=== PATIENT | female | born 1945 | race Caucasian/White ===

== ENCOUNTER 2016-07-18 | Outpatient (CLI) | payer MEDICARE | END 2016-07-18 08:51 | disposition critical access hospital (66) | CPT/HCPCS: A0425; A0429 ==

== ENCOUNTER 2016-07-18 08:59 | Emergency (ER) | payer MEDICARE | END 2016-07-18 11:08 | disposition home or self-care (01) | DX: S72.114A Nondisplaced fracture of greater trochanter of right femur, initial encounter for closed fracture (principal); W01.0XXA Fall on same level from slipping, tripping and stumbling without subsequent striking against object, initial encounter; Y92.009 Unspecified place in unspecified non-institutional (private) residence as the place of occurrence of the external cause; Z96.642 Presence of left artificial hip joint; I10 Essential (primary) hypertension; E03.9 Hypothyroidism, unspecified; J44.9 Chronic obstructive pulmonary disease, unspecified; Z87.891 Personal history of nicotine dependence ==

== ENCOUNTER 2016-09-28 09:00 | Outpatient (CLI) | payer MEDICARE | END 2016-09-28 23:59 | DX: E03.9 Hypothyroidism, unspecified (principal); E63.9 Nutritional deficiency, unspecified; I10 Essential (primary) hypertension ==

== ENCOUNTER 2016-09-28 12:29 | Emergency (ER) | payer MEDICARE | END 2016-09-28 15:15 | disposition home or self-care (01) | DX: S40.021A Contusion of right upper arm, initial encounter (principal); S40.811A Abrasion of right upper arm, initial encounter; W01.0XXA Fall on same level from slipping, tripping and stumbling without subsequent striking against object, initial encounter; Y92.018 Other place in single-family (private) house as the place of occurrence of the external cause; M50.322 Other cervical disc degeneration at C5-C6 level; M50.323 Other cervical disc degeneration at C6-C7 level; Z98.1 Arthrodesis status; I10 Essential (primary) hypertension; R01.1 Cardiac murmur, unspecified; J44.9 Chronic obstructive pulmonary disease, unspecified; G47.30 Sleep apnea, unspecified; E03.9 Hypothyroidism, unspecified; K21.9 Gastro-esophageal reflux disease without esophagitis; M19.90 Unspecified osteoarthritis, unspecified site; Z87.891 Personal history of nicotine dependence ==

== ENCOUNTER 2016-09-30 12:06 | Outpatient (CLI) | payer MEDICARE | END 2016-09-30 12:07 | disposition critical access hospital (66) | DX: R69 Illness, unspecified (principal) | CPT/HCPCS: A0425; A0429 ==

== ENCOUNTER 2016-09-30 12:17 | Emergency (ER) | payer MEDICARE | END 2016-09-30 17:10 | disposition home or self-care (01) | DX: G47.00 Insomnia, unspecified (principal); I10 Essential (primary) hypertension; J44.9 Chronic obstructive pulmonary disease, unspecified; G47.30 Sleep apnea, unspecified; E03.9 Hypothyroidism, unspecified; K21.9 Gastro-esophageal reflux disease without esophagitis; M19.90 Unspecified osteoarthritis, unspecified site; Z87.891 Personal history of nicotine dependence ==

== ENCOUNTER 2017-01-16 14:12 | Outpatient (CLI) | payer MEDICARE | END 2017-01-16 14:13 | disposition home or self-care (01) | LOC: SC 14:12 | PROVIDERS: ATTEND Internal Medicine Pulmonary Disease | DX: G47.33 Obstructive sleep apnea (adult) (pediatric) (principal); G47.00 Insomnia, unspecified | CPT/HCPCS: 99203; G0463; 99212 ==

== ENCOUNTER 2017-02-26 13:46 | Emergency (ER) | payer MEDICARE ==
[2017-02-26] MEDS ORDERED: oxyCODONE 5 MG TABLET PO STA (14:13)
--- NOTE | 2017-02-26 14:15 | ED Physician Documentation ---
History of Present Illness - Stated complaint Stated Complaint: GLF/R BACK PX - Chief complaint Chief Complaint: Back Pain - History obtained from History obtained from: Patient, Family - History of Present Illness Timing: Other (71-year-old woman with chronic low back pain on fentanyl, history of prior fall causing a cervical spine injury with fracture. About a week ago she fell backward and onto the right side and has persistent increase in her chronic neck pain as well as pain of the Right posterior pelvic brim without midline spinal pain. No other injuries. No head injury.) Review of Systems Ten Systems: 10 systems reviewed and negative Constitutional: denies: Fever, Chills Cardiac: denies: Chest pain / pressure, Palpitations Respiratory: denies: Dyspnea, Cough PD PAST MEDICAL HISTORY - Past Medical History Cardiovascular: Hypertension, Murmur Respiratory: COPD, Sleep apnea Neuro: None Endocrine/Autoimmune: HyPOthyroidism GI: GERD : Incontinence HEENT: None Psych: Depression, Anxiety, Eating disorder Musculoskeletal: Osteoarthritis, Chronic back pain Derm: Other drug resistant infections - Past Surgical History Past Surgical History: Yes General: Cholecystectomy Ortho: Hip replacement, Spine surgery Derm: Skin grafts, Other - Present Medications Home Medications: Ambulatory Orders Medication Instructions Recorded Confirmed Hydrochlorothiazide 12.5 mg PO DAILY 03/28/13 11/25/16 Losartan Potassium [Cozaar] 50 mg PO DAILY 03/28/13 11/25/16 Progesterone,Micronized 100 mg PO HS 03/28/13 11/25/16 [Progesterone] Venlafaxine ER [Effexor ER] 225 mg PO DAILY 03/28/13 11/25/16 Levothyroxine Sodium [Levoxyl] 200 mcg PO DAILY 02/26/16 11/25/16 Bupropion HCl 75 mg PO DAILY 05/31/16 11/25/16 Estrogen,Adriane/Me-Testosterone 1 tab PO DAILY 05/31/16 11/25/16 [Eemt Hs 0.625-1.25 mg Tablet] Fentanyl [Fentanyl 100mcg patch] 150 mcg TD Q72H 05/31/16 11/25/16 Fluticasone/Salmeterol [Advair 2 puffs INH Q4H PRN 05/31/16 11/25/16 250-50 Diskus] Levothyroxine Sodium [Levoxyl] 25 mcg PO DAILY 05/31/16 11/25/16 Sucralfate 1 gm PO QID #120 tablet 06/03/16 11/25/16 Morphine ER 15 mg PO Q4H PRN 07/18/16 11/25/16 Albuterol Sulfate [Proair Hfa 2 puffs INH Q4H PRN 08/17/16 11/25/16 Inhaler] Calcium Citrate [Calcium Citrate] 1 tab PO DAILY 08/17/16 11/25/16 Cholecalciferol (Vitamin D3) 1 cap PO DAILY 08/17/16 11/25/16 [Vitamin D3] Diclofenac Sodium [Voltaren] 1 applic TP DAILY PRN 08/17/16 11/25/16 Gluc Palafox/Chondro Palafox A/Vit C/Mn 1 cap PO DAILY 08/17/16 11/25/16 [Glucosamine-Chondroitin Cap] Melatonin [Melatonin] 10 mg PO QPM PRN 08/17/16 11/25/16 Multivitamin W/Minerals Liq 1 tab PO DAILY 08/17/16 11/25/16 [Centrum] Naproxen Sodium [Aleve] 2 tab PO Q8H PRN 08/17/16 11/25/16 Pantoprazole [Protonix] 40 mg PO Q12H 08/17/16 11/25/16 oxyCODONE [Roxicodone] 5 mg PO Q4-6H PRN #20 tablet 02/26/17 - Allergies Allergies/Adverse Reactions: Allergies Allergy/AdvReac Type Severity Reaction Status Date / Time Tetracyclines Allergy Severe Anaphylaxis Verified 09/30/16 12:25 buprenorphine HCl * AdvReac Severe hysterical Verified 09/30/16 12:25 [From Buprenex] fluoxetine HCl * AdvReac Severe suicidal Verified 09/30/16 12:25 [From Prozac] NSAIDS (Non-Steroidal AdvReac Severe GI BLEED Verified 09/30/16 12:25 Anti-Inflamma diazepam [From Valium] AdvReac Intermediate violent Verified 09/30/16 12:25 behavoir amitriptyline HCl * AdvReac Unknown pt is Verified 09/30/16 12:25 [From Elavil] unsure, maybe depressed tape AdvReac Intermediate localized Uncoded 09/30/16 12:25 blisters - Social History Does the pt smoke?: No Smoking Status: Former smoker Does the pt drink ETOH?: No Does the pt have substance abuse?: Yes - Immunizations Immunizations are current?: Yes - POLST Patient has POLST: Yes PD ED PE NORMAL - Vitals Vital signs reviewed: Yes - General General: Alert and oriented X 3, No acute distress - Neck Neck: Supple, no meningeal sign, Other (She has mild midline neck tenderness, prominent kyphosis of the neck and thoracic spine, no thoracic or lumbar spinal tenderness.) - Abdomen Abdomen: Soft, Non tender - Extremities Extremities: No deformity, No tenderness to palpate, Other (Mild tenderness the Right posterior pelvic brim without hip tenderness or pain with internal/ external rotation.) - Neuro Neuro: Alert and oriented X 3, Normal speech - Psych Psych: Normal mood, Normal affect Results - Vitals Vitals: Vital Signs - 24 hr 02/26/17 13:53 Temperature 36.3 C L Heart Rate 102 H Respiratory 16 Rate Blood Pressure 133/75 H O2 Saturation 98 Oxygen O2 Source [With Activity] Nasal cannula O2 Source [Without Activity] Nasal cannula O2 Source Room air - Rads (name of study) R hip/pelvis Xr Radiology: EMP read contemporaneously (stable) CT C spine Radiology: EMP read contemporaneously (stable NAD) Departure - Departure Disposition: 01 Home, Self Care Clinical Impression: Fall from slip, trip, or stumble Qualifiers: Encounter type: initial encounter Qualified Code(s): W01.0XXA - Fall on same level from slipping, tripping and stumbling without subsequent striking against object, initial encounter Greater trochanter fracture Qualifiers: Encounter type: subsequent encounter Fracture type: closed Fracture alignment: displaced Laterality: right Fracture healing: with nonunion Qualified Code(s): S72.111K - Displaced fracture of greater trochanter of right femur, subsequent encounter for closed fracture with nonunion C1 cervical fracture Qualifiers: Encounter type: subsequent encounter Fracture type: closed Fracture morphology : other fracture Fracture alignment: nondisplaced Fracture healing: with routine healing Qualified Code(s): S12.091D - Other nondisplaced fracture of first cervical vertebra, subsequent encounter for fracture with routine healing Condition: Good Record reviewed to determine appropriate education?: Yes Instructions: ED Low Back Pain Injury Prescriptions: oxyCODONE [Roxicodone] 5 mg PO Q4-6H PRN #20 tablet PRN Reason: Pain Comments: Call your doctor to arrange a follow-up appointment, make the next available appointment. In the interim, return anytime if worse or if new symptoms develop. Your blood pressure was elevated today on check into the emergency department. This does not mean that you have hypertension, it is a common phenomenon to come to the emergency department and have elevated blood pressure. I recommend that she see her primary care physician within the week to have it rechecked when you are feeling better.
[2017-02-26] MEDS ORDERED: oxyCODONE 5 MG TABLET ONE (14:21)
--- NOTE | 2017-02-26 15:10 | XRAY Preliminary Report ---
Exam: XR Hip w/Pelvis 2-3V RT IMPRESSION: No significant interval change. Previous left hip hardware and right greater trochanter f racture, stable. [facility] SITE ID: [id number]
--- NOTE | 2017-02-26 15:13 | XRAY Report ---
EXAM: RIGHT HIP AND PELVIS RADIOGRAPHY EXAM DATE: 02/26/2017 02:56 PM. HISTORY: Pelvic pain p fall. COMPARISONS: None. TECHNIQUE: 1 view of the pelvis and 1 view of the hip. FINDINGS: Bones: Stable appearance of previously noted right greater trochanter fracture. No new fracture. Visu alized left hip hardware is stable. Joints: The bilateral hip, pubis symphysis, and sacroiliac joints are preserved. Soft Tissues: Normal. No soft tissue swelling. IMPRESSION: No significant interval change. Previous left hip hardware and right greater trochanter f racture, stable. [facility] Referring Provider Line: [phone] SITE ID: [id number]
--- NOTE | 2017-02-26 15:17 | CT Preliminary Report ---
Exam: CT Cervical Spine W/O IMPRESSION: Stable postoperative changes and appearance of the odontoid fracture. Stable degenerative changes. No new fracture. [facility] SITE ID: [id number]
--- NOTE | 2017-02-26 15:19 | CT Report ---
EXAM: CT CERVICAL SPINE WITHOUT CONTRAST DATE: 02/26/2017 02:54 PM HISTORY: Increased neck pain, fall, prior frx. COMPARISONS: 09/28/2016. TECHNIQUE: Thin-section axial images were acquired of the cervical spine without contrast. Post-proce ssing: Coronal and sagittal reformats. Other: None. In accordance with CT protocol optimization, one or more of the following dose reduction techniques w ere utilized for this exam: automated exposure control, adjustment of mA and/or KV based on patient s ize, or use of iterative reconstructive technique. FINDINGS: Alignment: Stable accentuation of the cervical lordosis. Bones: Posterior spinal hardware fusion at C1-C2 is stable, with stable alignment of the odontoid fra cture. Some osseous bridging is again seen. No new fracture is appreciated. Interspace Levels/Facets: C1-C2: Stable fusion. No change in appearance of odontoid fracture. C2-C3: Unremarkable. C3-C4: Unremarkable. C4-C5: Unremarkable. C5-C6: Stable degenerative disk and facet disease. C6-C7: Stable degenerative disk and facet disease. C7-T1: Unremarkable. Musculature: Normal. No fatty atrophy. Other: The paravertebral and prevertebral soft tissues are normal. The lung apices are clear. IMPRESSION: Stable postoperative changes and appearance of the odontoid fracture. Stable degenerative changes. No new fracture. [facility] Referring Provider Line: [phone] SITE ID: [id number]
[2017-02-26 15:36] VITALS: BP 147/75
== END 2017-02-26 15:40 | disposition home or self-care (01) ==
LOC: ED 13:46
DX: S72.111K Displaced fracture of greater trochanter of right femur, subsequent encounter for closed fracture with nonunion (principal); S12.091D Other nondisplaced fracture of first cervical vertebra, subsequent encounter for fracture with routine healing; W01.0XXD Fall on same level from slipping, tripping and stumbling without subsequent striking against object, subsequent encounter; I10 Essential (primary) hypertension; E03.9 Hypothyroidism, unspecified; Z96.649 Presence of unspecified artificial hip joint; Z87.891 Personal history of nicotine dependence
CPT/HCPCS: 72125; 73502; 99283; 99284; A9270

== ENCOUNTER 2017-04-09 19:48 | Emergency (ER) | payer MEDICARE ==
--- NOTE | 2017-04-09 20:10 | ED Physician Documentation ---
PD HPI ABD PAIN - Stated complaint Stated Complaint: ABD PX/VOMITING/NAUSEA - Chief complaint Chief Complaint: Abd Pain - History obtained from History obtained from: Patient, Family, Other (majority of HPI is from patient' s daugher (at bedside), as patient is drowsy at times, other times is vomiting, and also preoccupied with getting some water to drink. Daugher is good historian , sounds like she is quite familiar with patient's baseline condition as well as acute vs. chronic symptoms) - History of Present Illness Timing - onset: Enter time (10:30) Timing - details: Gradual onset, Waxing and waning Pain level now: 5 Quality: Pain Location: Other (across upper abdomen) Improved by: Other (no ameliorating factors) Worsened by: Eating Associated symptoms: Nausea, Vomiting, Diarrhea (earlier today, resolved after taking immodium). No: Fever Recently seen: Emergency Dept (per daughter, patient was T+R from ED last week for abdominal pain after unremarkable w/u; however, daughter feels that the abdominal pain patient is having today is distinctly higher than it was last week) - Additional information Additional information: since 10:30 this morning, c/o abdominal pain across upper abdomen associated with nausea, vomiting, and unable to tolerate PO (due to exacerbation of pain, vomiting when she has tried to eat or drink anything). Recently stopped Depakote (2 days ago). Review of Systems Constitutional: denies: Fever Cardiac: reports: Reviewed and negative Respiratory: reports: Reviewed and negative GI: reports: Abdominal Pain, Nausea, Vomiting, Diarrhea (earlier today, resolved after taking immodium) : denies: Dysuria, Frequency Musculoskeletal: reports: Back pain (chronic) PD PAST MEDICAL HISTORY - Past Medical History Cardiovascular: Hypertension, Murmur Respiratory: COPD, Sleep apnea Neuro: None Endocrine/Autoimmune: HyPOthyroidism GI: GERD : Incontinence HEENT: None Psych: Depression, Anxiety, Eating disorder Musculoskeletal: Osteoarthritis, Chronic back pain Derm: Other drug resistant infections - Past Surgical History Past Surgical History: Yes General: Cholecystectomy Ortho: Hip replacement, Spine surgery Derm: Skin grafts, Other - Present Medications Home Medications: Ambulatory Orders Medication Instructions Recorded Confirmed Hydrochlorothiazide 12.5 mg PO DAILY 03/28/13 11/25/16 Losartan Potassium [Cozaar] 50 mg PO DAILY 03/28/13 11/25/16 Progesterone,Micronized 100 mg PO HS 03/28/13 11/25/16 [Progesterone] Venlafaxine ER [Effexor ER] 225 mg PO DAILY 03/28/13 11/25/16 Levothyroxine Sodium [Levoxyl] 200 mcg PO DAILY 02/26/16 11/25/16 Bupropion HCl 75 mg PO DAILY 05/31/16 11/25/16 Estrogen,Adriane/Me-Testosterone 1 tab PO DAILY 05/31/16 11/25/16 [Eemt Hs 0.625-1.25 mg Tablet] Fentanyl [Fentanyl 100mcg patch] 150 mcg TD Q72H 05/31/16 11/25/16 Fluticasone/Salmeterol [Advair 2 puffs INH Q4H PRN 05/31/16 11/25/16 250-50 Diskus] Levothyroxine Sodium [Levoxyl] 25 mcg PO DAILY 05/31/16 11/25/16 Sucralfate 1 gm PO QID #120 tablet 06/03/16 11/25/16 Morphine ER 15 mg PO Q4H PRN 07/18/16 11/25/16 Albuterol Sulfate [Proair Hfa 2 puffs INH Q4H PRN 08/17/16 11/25/16 Inhaler] Calcium Citrate [Calcium Citrate] 1 tab PO DAILY 08/17/16 11/25/16 Cholecalciferol (Vitamin D3) 1 cap PO DAILY 08/17/16 11/25/16 [Vitamin D3] Diclofenac Sodium [Voltaren] 1 applic TP DAILY PRN 08/17/16 11/25/16 Gluc Palafox/Chondro Palafox A/Vit C/Mn 1 cap PO DAILY 08/17/16 11/25/16 [Glucosamine-Chondroitin Cap] Melatonin [Melatonin] 10 mg PO QPM PRN 08/17/16 11/25/16 Multivitamin W/Minerals Liq 1 tab PO DAILY 08/17/16 11/25/16 [Centrum] Naproxen Sodium [Aleve] 2 tab PO Q8H PRN 08/17/16 11/25/16 Pantoprazole [Protonix] 40 mg PO Q12H 08/17/16 11/25/16 oxyCODONE [Roxicodone] 5 mg PO Q4-6H PRN #20 tablet 02/26/17 - Allergies Allergies/Adverse Reactions: Allergies Allergy/AdvReac Type Severity Reaction Status Date / Time Tetracyclines Allergy Severe Anaphylaxis Verified 04/09/17 20:01 buprenorphine HCl * AdvReac Severe hysterical Verified 04/09/17 20:01 [From Buprenex] fluoxetine HCl * AdvReac Severe suicidal Verified 04/09/17 20:01 [From Prozac] diazepam [From Valium] AdvReac Intermediate violent Verified 04/09/17 20:01 behavoir amitriptyline HCl * AdvReac Unknown pt is Verified 04/09/17 20:01 [From Elavil] unsure, maybe depressed tape AdvReac Intermediate localized Uncoded 09/30/16 12:25 blisters - Social History Does the pt smoke?: No Smoking Status: Former smoker Does the pt drink ETOH?: No Does the pt have substance abuse?: Yes - Immunizations Immunizations are current?: Yes - POLST Patient has POLST: Yes PD ED PE NORMAL - Vitals Vital signs reviewed: Yes - General General: Other (initially drowsy when I entered room but arousable to voice; subsequently during H+P, she is vomiting and appears to be uncomfortable) - HEENT HEENT: Other (dry mucous membranes) - Neck Neck: Supple, no meningeal sign - Cardiac Cardiac: RRR, No murmur - Respiratory Respiratory: No respiratory distress, Clear bilaterally - Abdomen Abdomen: Soft, Non distended, Other (tenderness superior to periumbilicus and in epigastrium with firmness along old inicision site. she does not tolerate palpation of this due to exacerbation of pain and vomiting) - Back Back: No CVA TTP - Derm Derm: Normal color, Warm and dry Results - Vitals Vitals: Vital Signs - 24 hr 04/10/17 09:15 Heart Rate 96 Respiratory 16 Rate Blood Pressure 132/76 H O2 Saturation 96 Oxygen O2 Source [] Nasal cannula O2 Source [] Nasal cannula O2 Source Room air - Labs Labs: Laboratory Tests 04/09/17 04/09/17 04/09/17 20:18 20:18 21:18 WBC 7.6 RBC 4.23 Hgb 12.5 Hct 37.9 MCV 89.7 MCH 29.5 MCHC 32.9 RDW 17.3 H Plt Count 293 MPV 7.6 L Neut # 5.8 Lymph # 0.8 L Bowie # 0.9 Eos # 0.1 Baso # 0.1 Absolute Nucleated RBC 0.00 Nucleated RBC % 0.0 Sodium 137 Potassium 3.6 Chloride 96 L Carbon Dioxide 32 Anion Gap 9.0 BUN 14 Creatinine 0.8 Estimated GFR (MDRD) 71 L Glucose 106 H Lactic Acid 0.7 Calcium 9.4 Total Bilirubin 0.4 AST 36 ALT 23 Alkaline Phosphatase 79 Total Protein 7.4 Albumin 4.0 Globulin 3.4 Albumin/Globulin Ratio 1.2 Lipase 34 Urine Color Urine Clarity Urine pH Ur Specific [place] Urine Protein Urine Glucose (UA) Urine Ketones Urine Occult Blood Urine Nitrite Urine Bilirubin Urine Urobilinogen Ur Leukocyte Esterase Ur Microscopic Review Urine Culture Comments 04/09/17 21:40 WBC RBC Hgb Hct MCV MCH MCHC RDW Plt Count MPV Neut # Lymph # [place] # Eos # Baso # Absolute Nucleated RBC Nucleated RBC % Sodium Potassium Chloride Carbon Dioxide Anion Gap BUN Creatinine Estimated GFR (MDRD) Glucose Lactic Acid Calcium Total Bilirubin AST ALT Alkaline Phosphatase Total Protein Albumin Globulin Albumin/Globulin Ratio Lipase Urine Color YELLOW Urine Clarity CLEAR Urine pH 8.0 H Ur Specific [place] 1.010 Urine Protein NEGATIVE Urine Glucose (UA) NEGATIVE Urine Ketones NEGATIVE Urine Occult Blood NEGATIVE Urine Nitrite NEGATIVE Urine Bilirubin NEGATIVE Urine Urobilinogen 0.2 (NORMAL) Ur Leukocyte Esterase NEGATIVE Ur Microscopic Review NOT INDICATED Urine Culture Comments NOT INDICATED - Rads (name of study) CT A/P Radiology: Prelim report reviewed, See rad report PD MEDICAL DECISION MAKING - ED course Complexity details: reviewed old records, reviewed results, re-evaluated patient , considered differential, d/w patient, d/w family ED course: patients daughter expresses frustration with patients insomnia, feels overwhelmed in trying to take care of her; thus, patient held until AM for SW consult. SW evaluated patient in ED and then d/w daughter regarding options for help in patients care. patient was then discharged home with daughter. Departure - Departure Disposition: 01 Home, Self Care Clinical Impression: Abdominal pain Condition: Good Instructions: ED Abdominal Pain Unkn Cause Follow-Up: Praveen Stewart DO [Primary Care Provider] - Discharge Date/Time: 04/10/17 10:05
[2017-04-09] MEDS ORDERED: ONDANSETRON 4 MG/2 ML VIAL IVP STA (20:26)
[2017-04-09] MEDS ORDERED: SODIUM CHLORIDE 0.9% 500 ML IV STA (20:26)
[2017-04-09 20:31] LABS: BASOPHILS # (AUTO) 0.1 10^3/uL (0.0-0.1); BASOPHILS % (AUTO) 1.1 %; EOSINOPHILS # (AUTO) 0.1 10^3/uL (0.0-0.7); EOSINOPHILS % (AUTO) 1.4 %; HCT - HEMATOCRIT 37.9 % (37.0-47.0); HGB - HEMOGLOBIN 12.5 g/dL (12.0-16.0); LYMPHOCYTES # (AUTO) 0.8 10^3/uL (1.5-3.5); LYMPHOCYTES % (AUTO) 10.3 %; MEAN CORPUSCULAR HEMOGLOBIN 29.5 pg (27.0-31.0); MEAN CORPUSCULAR HGB CONC 32.9 g/dL (32.0-36.0); MEAN CORPUSCULAR VOLUME 89.7 fL (81.0-99.0); MEAN PLATELET VOLUME 7.6 fL (7.9-10.8); MONOCYTES # (AUTO) 0.9 10^3/uL (0.0-1.0); MONOCYTES % (AUTO) 11.5 %; NEUTROPHILS # (AUTO) 5.8 10^3/uL (1.5-6.6); NEUTROPHILS % (AUTO) 75.7 %; RED BLOOD COUNT 4.23 10^6/uL (4.20-5.40); RED CELL DISTRIBUTION WIDTH 17.3 % (12.0-15.0); UNCORRECTED WHITE BLOOD COUNT 7.6 x10^3/uL; WHITE BLOOD COUNT 7.6 x10^3/uL (4.8-10.8)
[2017-04-09] MEDS ORDERED: IOPAMIDOL-300 100 ML VIAL ONE (20:38)
[2017-04-09] MEDS ORDERED: IOPAMIDOL-300 50 ML VIAL ONE (20:38)
[2017-04-09 20:40] LABS: ALBUMIN/GLOBULIN RATIO 1.2 (1.0-2.2); BILIRUBIN,TOTAL 0.4 mg/dL (0.2-1.0); CALCIUM 9.4 mg/dL (8.5-10.3); CREATININE 0.8 mg/dL (0.4-1.0); POTASSIUM 3.6 mmol/L (3.5-5.0); TOTAL PROTEIN 7.4 g/dL (6.7-8.2)
[2017-04-09] MEDS ORDERED: ONDANSETRON 4 MG/2 ML VIAL ONE (20:47)
[2017-04-09 21:58] LABS: BILIRUBIN,URINE NEGATIVE (NEGATIVE)
[2017-04-09 22:06] LABS: UA CHARGE (STRIP ONLY) YES; UR CULTURE IF IND NOT INDICATED
[2017-04-09] MEDS ORDERED: IOPAMIDOL-300 50 ML VIAL PO ONE (22:25)
[2017-04-09] MEDS ORDERED: SODIUM CHLORIDE 0.9% 500 ML IV ONE (22:28)
[2017-04-09] MEDS ORDERED: IOPAMIDOL-300 100 ML VIAL IVP ONE (22:37)
--- NOTE | 2017-04-09 23:06 | CT Preliminary Report ---
Exam: CT Abdomen/Pelvis W/ IMPRESSION: 1. No definite acute abdominal or pelvic abnormality. 2. Evidence of prior granulomatous infection. 3. Severe diskogenic vertebral change at L2-L3 with endplate irregularity, relatively stable in appea rox when compared to the prior exam. Chronic indolent infection at this level difficult to exclude with certainty. 4. Status post cholecystectomy. Intrahepatic and extrahepatic biliary dilation is again noted, probab ly postcholecystectomy physiologic. [facility] SITE ID: [id number]
--- NOTE | 2017-04-09 23:26 | CT Report ---
EXAM: CT ABDOMEN AND PELVIS EXAM DATE: 04/09/2017 10:41 PM. CLINICAL HISTORY: Abdominal pain, nausea and vomiting. COMPARISONS: 06/01/2016. TECHNIQUE: Routine helical CT imaging was performed through the abdomen and pelvis. IV contrast: 100 mL Isovue 300. Enteric contrast: Present. Reconstructions: Coronal and sagittal. In accordance with CT protocol optimization, one or more of the following dose reduction techniques w ere utilized for this exam: automated exposure control, adjustment of mA and/or KV based on patient s ize, or use of iterative reconstructive technique. FINDINGS: ABDOMEN: Liver: Calcified hepatic granulomata are noted. No definite suspicious hepatic lesion seen at this ti me. Stomach/Distal Esophagus: Moderately distended stomach with ingested oral contrast material. No evide nce of duodenal obstruction. Gallbladder: Surgically absent. Bile Ducts: Moderate intrahepatic and extrahepatic biliary prominence is present, with some tapering of the CBD distally. This is most indicative of post-cholecystectomy physiology. Pancreas: No significant abnormality. Spleen: Numerous calcified splenic granulomata are noted. Kidneys: No solid appearing lesion. No hydronephrosis. Adrenals: No significant abnormality. Bowel: There is no definite evidence of bowel obstruction. Nonspecific mild prominence of the central small bowel loops, probably related to peristalsis. No differential dilatation noted at this time. T here has been prior ventral abdominal mesh repair. Scattered areas of protrusion of small bowel scott to the anterior abdominal wall are seen, at and below the level of the umbilicus. There is no comple te herniation of bowel loops. No evidence of bowel obstruction as a result. Severe sigmoid diverticul osis is present without evidence of diverticulitis. Appendix: Normal. Lymph Nodes: No pathologically enlarged nodes. Vasculature: Normal caliber aorta. There is moderate to severe aortic and branch vessel atheroscleros is. Fluid: No significant free fluid. Abdominal Wall: No significant abnormality. Other: No significant abnormality. PELVIS: Uterus and Ovaries: No significant abnormality. Bladder: No significant abnormality. Lymph Nodes: No pathologically enlarged nodes. Fluid: No significant free fluid. Other: None. BONES: Anterior dislocation of the L5 vertebral body relative to S1 is noted, chronic in appearance. Lower lumbar spinal fixation hardware is present. Severe diskogenic vertebral change has developed at L2-L3. Irregularity of the endplate is again noted. Accounting for differences in technique, no sign ificant change from the prior exam. Posterior lower lumbar laminectomy noted. LOWER CHEST: No significant consolidation or effusion. IMPRESSION: 1. No definite acute abdominal or pelvic abnormality. 2. Evidence of prior granulomatous infection. 3. Severe diskogenic vertebral change at L2-L3 with endplate irregularity, relatively stable in appea rox when compared to the prior exam. Chronic indolent infection at this level difficult to exclude with certainty. 4. Status post cholecystectomy. Intrahepatic and extrahepatic biliary dilation is again noted, probab ly post-cholecystectomy physiology. [facility] Referring Provider Line: [phone] SITE ID: [id number]
[2017-04-10 15:02] VITALS: BP 132/76
== END 2017-04-10 10:05 | disposition home or self-care (01) ==
LOC: ED 19:48
DX: R10.9 Unspecified abdominal pain (principal); G47.00 Insomnia, unspecified; I10 Essential (primary) hypertension; Z96.649 Presence of unspecified artificial hip joint; Z87.891 Personal history of nicotine dependence
CPT/HCPCS: 36415; 74177; 80053; 81003; 83605; 83690; 85025; 96361; 96374; 99284; 99285; Q9967; 81001; 87086

== ENCOUNTER 2018-01-31 09:58 | Emergency (ER) | payer MEDICARE ==
[2018-01-31 10:09] VITALS: BP 120/66
--- NOTE | 2018-01-31 11:02 | ED Physician Documentation ---
History of Present Illness - Stated complaint Stated Complaint: R HIP PX - Chief complaint Chief Complaint: Ext Problem - Additonal information Additional information: hx from pt 72 f prior back surgery to ED concerned she has a pelvic or hip fx she had a bad dream and was jerking around now has R SI region pain can walk otherwise well no fever cough NVD Review of Systems Constitutional: denies: Fever Respiratory: denies: Cough GI: denies: Vomiting, Diarrhea Musculoskeletal: reports: Extremity pain PD PAST MEDICAL HISTORY - Past Medical History Cardiovascular: Hypertension, Murmur Respiratory: COPD, Sleep apnea Endocrine/Autoimmune: HyPOthyroidism GI: GERD : Incontinence HEENT: None Psych: Depression, Anxiety, Bipolar disorder, Eating disorder Musculoskeletal: Osteoarthritis, Chronic back pain Derm: Other drug resistant infections - Past Surgical History Past Surgical History: Yes General: Cholecystectomy Ortho: Hip replacement, Spine surgery Derm: Skin grafts, Other - Present Medications Home Medications: Ambulatory Orders Medication Instructions Recorded Confirmed Hydrochlorothiazide 12.5 mg PO DAILY 03/28/13 11/25/16 Losartan Potassium [Cozaar] 50 mg PO DAILY 03/28/13 11/25/16 Progesterone,Micronized 100 mg PO HS 03/28/13 11/25/16 [Progesterone] Venlafaxine ER [Effexor ER] 225 mg PO DAILY 03/28/13 11/25/16 Levothyroxine Sodium [Levoxyl] 200 mcg PO DAILY 02/26/16 11/25/16 Estrogen,Adriane/Me-Testosterone 1 tab PO DAILY 05/31/16 11/25/16 [Eemt Hs 0.625-1.25 mg Tablet] Fluticasone/Salmeterol [Advair 2 puffs INH Q4H PRN 05/31/16 11/25/16 250-50 Diskus] Levothyroxine Sodium [Levoxyl] 25 mcg PO DAILY 05/31/16 11/25/16 buPROPion HCl [Bupropion HCl] 75 mg PO DAILY 05/31/16 11/25/16 fentaNYL [Fentanyl 100mcg patch] 150 mcg TD Q72H 05/31/16 11/25/16 Sucralfate 1 gm PO QID #120 tablet 06/03/16 11/25/16 Morphine ER 15 mg PO Q4H PRN 07/18/16 11/25/16 Albuterol Sulfate [Proair Hfa 2 puffs INH Q4H PRN 08/17/16 11/25/16 Inhaler] Calcium Citrate [Calcium Citrate] 1 tab PO DAILY 08/17/16 11/25/16 Cholecalciferol (Vitamin D3) 1 cap PO DAILY 08/17/16 11/25/16 [Vitamin D3] Diclofenac Sodium [Voltaren] 1 applic TP DAILY PRN 08/17/16 11/25/16 Gluc Palafox/Chondro Palafox A/Vit C/Mn 1 cap PO DAILY 08/17/16 11/25/16 [Glucosamine-Chondroitin Cap] Melatonin [Melatonin] 10 mg PO QPM PRN 08/17/16 11/25/16 Multivitamin W/Minerals Liq 1 tab PO DAILY 08/17/16 11/25/16 [Centrum] Naproxen Sodium [Aleve] 2 tab PO Q8H PRN 08/17/16 11/25/16 Pantoprazole [Protonix inj] 40 mg PO Q12H 08/17/16 11/25/16 oxyCODONE [Roxicodone] 5 mg PO Q4-6H PRN #20 tablet 02/26/17 Lidocaine Patch 5% [Lidoderm Patch] 1 each TOP DAILY PRN #10 patch 01/31/18 - Allergies Allergies/Adverse Reactions: Allergies Allergy/AdvReac Type Severity Reaction Status Date / Time Tetracyclines Allergy Severe Anaphylaxis Verified 04/09/17 20:01 buprenorphine HCl * AdvReac Severe hysterical Verified 04/09/17 20:01 [From Buprenex] fluoxetine HCl * AdvReac Severe suicidal Verified 04/09/17 20:01 [From Prozac] diazepam [From Valium] AdvReac Intermediate violent Verified 04/09/17 20:01 behavoir amitriptyline HCl * AdvReac Unknown pt is Verified 04/09/17 20:01 [From Elavil] unsure, maybe depressed tape AdvReac Intermediate localized Uncoded 09/30/16 12:25 blisters - Social History Does the pt smoke?: No Smoking Status: Never smoker Does the pt drink ETOH?: No Does the pt have substance abuse?: No - Immunizations Immunizations are current?: Yes - POLST Patient has POLST: Yes PD ED PE NORMAL - Vitals Vital signs reviewed: Yes - Cardiac Cardiac: RRR - Respiratory Respiratory: No respiratory distress, Clear bilaterally - Back Back: Other (TTP R SI region s redness swelling or warmth, no midline spine pain , no hip TTP, able to fully range hip, dec sensa from knee downin non dermtomal pattern, foot dorsi planta flexion, knee ext hip flexion, 5/5, no clonus, neg SLR) - Derm Derm: Normal color Results - Vitals Vitals: Vital Signs - 24 hr 01/31/18 10:03 Temperature 36.1 C L Heart Rate 105 H Respiratory 16 Rate Blood Pressure 120/66 O2 Saturation 96 Oxygen O2 Source [With Activity] Nasal cannula O2 Source [Without Activity] Nasal cannula O2 Source Room air - Rads (name of study) hip pelvis Radiology: See rad report (no acute process) PD MEDICAL DECISION MAKING - ED course ED course: MSE performed low suspicion for fx given mechanism xray neg do not feel CT needed hurts to move and touch -liekly muscular elderly but no fever etc and not spinal - no not feel MRI needs at this point will dc - Sepsis Event Vital Signs: Vital Signs - 24 hr 01/31/18 10:03 Temperature 36.1 C L Heart Rate 105 H Respiratory 16 Rate Blood Pressure 120/66 O2 Saturation 96 Oxygen O2 Source [With Activity] Nasal cannula O2 Source [Without Activity] Nasal cannula O2 Source Room air Departure - Departure Disposition: 01 Home, Self Care Clinical Impression: Back pain Qualifiers: Back pain location: low back pain Chronicity: acute Back pain laterality: right Sciatica presence: without sciatica Qualified Code(s): M54.5 - Low back pain Condition: Good Instructions: ED Neck Back Pain General Prescriptions: Lidocaine Patch 5% [Lidoderm Patch] 1 each TOP DAILY PRN #10 patch PRN Reason: Pain Comments: Your pain is in the SI joint region but no fracture is seen on xray I think it is safe for you to go home Use your walker for support I prescribed lidocaine patches for the pain Follow up with your doctor if not better in a week
--- NOTE | 2018-01-31 11:16 | XRAY Report ---
Procedure Date: 01/31/2018 Accession Number: [id number] / [id number] Procedure: XR - Hip w/Pelvis 2-3V RT CPT Code: FULL RESULT: EXAM: RIGHT HIP AND PELVIS RADIOGRAPHY EXAM DATE: 01/31/2018 10:57 AM. HISTORY: R hip pain. COMPARISONS: 02/26/2017. TECHNIQUE: 1 view of the pelvis and 1 view of the hip. FINDINGS: Bones: Old right greater trochanteric avulsed fragment unchanged. No definite acute fracture or other bone lesion. Transitional vertebra with bilateral pseudarthrosis. Joints: Left total hip prosthesis in anatomic alignment. Right hip joint spaces well-preserved. Unremarkable SI joints and pubic symphysis. Extensive degenerative and postoperative changes in lower lumbar spine. Soft Tissues: Unremarkable. IMPRESSION: Chronic findings. No significant interval change. RADIA
[2018-01-31] MEDS ORDERED: ACETAMINOPHEN 325 MG TABLET PO STA (12:33)
[2018-01-31] MEDS ORDERED: LIDOCAINE PATCH 5% TOP PRN (12:33)
== END 2018-01-31 12:51 | disposition home or self-care (01) ==
LOC: ED 09:58
DX: M54.5 Low back pain (principal); I10 Essential (primary) hypertension; Z79.1 Long term (current) use of non-steroidal anti-inflammatories (NSAID)
CPT/HCPCS: 73502; 99283; A9270

== ENCOUNTER 2018-04-23 20:46 | Observation (INO) | payer MEDICARE ==
[2018-04-23] MEDS ORDERED: NAPROXEN 250 MG TABLET PO PRN (23:11)
[2018-04-23] MEDS ORDERED: DICLOFENAC SODIUM TP PRN (23:11)
[2018-04-23] MEDS ORDERED: ACETAMINOPHEN 325 MG TABLET PO PRN (23:17)
[2018-04-23] MEDS ORDERED: PROMETHAZINE 25 MG/1 ML VIAL IM PRN (23:17)
[2018-04-23] MEDS ORDERED: oxyCODONE 5 MG TABLET PO PRN ×2 (23:17)
[2018-04-23] MEDS ORDERED: ZOLPIDEM 5 MG TABLET PO PRN (23:17)
[2018-04-23] MEDS ORDERED: ONDANSETRON 4 MG/2 ML VIAL IVP PRN (23:17)
[2018-04-23] MEDS ORDERED: PROCHLORPERAZINE 10 MG/2 ML VIAL IVP PRN (23:17)
[2018-04-23] MEDS ORDERED: IPRATROPIUM/ALBUTEROL 3 ML NEB INH PRN (23:17)
[2018-04-23] MEDS ORDERED: traZODone 50 MG TABLET PO SCH (23:30)
[2018-04-23] MEDS ORDERED: OLANZapine ODT 5 MG TABLET TL SCH (23:30)
[2018-04-23] MEDS ORDERED: methylPREDNISolone SUCCINATE 40 MG/ML VIAL IVP SCH (23:45)
[2018-04-23] MEDS ORDERED: GABAPENTIN 300 MG CAPSULE PO SCH (23:45)
[2018-04-23] MEDS ORDERED: oxyCODONE ER 40 MG TABLET PO SCH (23:45)
--- NOTE | 2018-04-24 00:36 | HISTORY & PHYSICAL EXAMINATION ---
Chief Complaint - Chief Complaint Chief Complaint: Shorntess of breath History of Present Illness - Admitted From Admitted From:: Emergency Department - History Obtained From Records Reviewed: Yes History obtained from: Patient Exam Limitations: None - History of Present Illness HPI Comment/Other: Patient is a very pleasant 72-year-old female who looks older than her stated age with a past medical history significant for hypertension, osteoporosis, hypothyroidism, COPD, obstructive sleep apnea not on CPAP, mild pulmonary hypertension, mild aortic stenosis, chronic anemia, GERD, bipolar and chronic pain who presents to the [facility] emergency department with a chief complaint of shortness of breath. The patient states that she was in her normal state of health until about a month ago when she began to develop a upper respiratory infection. She states that off and on for the next 2 weeks she was having shortness of breath and coughing she states that some days were better than others. She states that throughout this entire time she had a productive cough. She states that the symptoms seem to have improved and then 1 week ago she began having diarrhea, nausea and fever. This lasted for a couple of days and then had improved as well. She states that a couple of weeks ago she had gone to a physical therapy appointment at which time she experienced severe shortness of breath with just trying to walk to her daughter's car. She does not move around much at home therefore was not experiencing a lot of shortness of breath with exertion. She states however that today she developed severe shortness of breath with just going to the bathroom. Even after she tried to rest she states that she was having a hard time breathing and therefore decided to go to the emergency room to be checked out. The patient states that her cough is getting better. She denies any fevers or chills. She does admit to some wheezing. She denies any chest pain. She denies any orthopnea, PND or any lower extremity swelling. She denies any abdominal pain, nausea or vomiting. The patient does state that she has been having worsening urinary incontinence with all her shortness of breath. Patient denies any headaches, blurred vision, runny nose, sore throat, nasal congestion, difficulty swallowing, diarrhea, constipation, urinary urgency, urinary frequency, dysuria, joint swelling, muscle aches, neck stiffness, recent unintentional weight loss, changes in her appetite, hair loss, skin changes, skin rash, polyuria, polydipsia, dizziness or any focal neurologic deficits. On presentation to the emergency department at [facility] the patient was afebrile but she was tachycardic with some respiratory distress and conversational dyspnea. Her respiratory rate was 23 on presentation and her oxygen saturations were between 89 and 92% on room air. The patient did appear to have diminished breath sounds and had expiratory and inspiratory wheezing on examination. The patient was given several breathing treatments and to 125 mg of IV Solu-Medrol with which the patient did seem to show improvement in her respiratory distress. The emergency room physician then had the patient ambulate to test to see if she was able to go home and when the patient ambulated with walking just 20 feet the patient became very short of breath and oxygen saturation dropped to the mid 80s. It was evident that the patient was not well enough to go home and needed to be admitted for a COPD exacerbation. The patient's chest x-ray did not show any acute process. The patient's EKG was unchanged from previous and troponin was negative. [facility] was on divert and did not have any beds available for the patient. The emergency room physician at [facility] also tried several other hospitals in the area who are all also full including [facility] as the patient is a [facility] patient. Finally she called [facility] and we did have a bed available and took the patient in transfer from their emergency department as a direct admission. The patient was admitted to the [facility] medical dao for COPD exacerbation. History - Past Medical History Cardiovascular: reports: Hypertension, Murmur Respiratory: reports: COPD, Sleep apnea Neuro: reports: None Endocrine/Autoimmune: reports: HyPOthyroidism GI: reports: GERD : reports: Incontinence HEENT: reports: None Psych: reports: Depression, Anxiety, Bipolar disorder, Eating disorder Musculoskeletal: reports: Osteoarthritis, Chronic back pain Derm: reports: Other drug resistant infections MRSA Hx?: Yes - Past Surgical History General: reports: Cholecystectomy Ortho: reports: Hip replacement, Knee replacement, Spine surgery Derm: reports: Skin grafts, Other - Family & Social History Family History: Mother: , COPD/Emphysema, Hypertension, Father: D eceased, CAD, Hypertension Family History Comment/Other: Father and daughter both with sleep apnea. The patient's mother had arthritis and an aortic aneurysm. The patient's uncle had an abdominal aortic aneurysm. Living arrangement: At home Living Situation: With family Social History Notes: The patient is originally from [place]. She lived most of her life in [place] and moved to [facility] with her daughter in 2011. She has just 1 child. The patient is retired. She is and lives with her daughter in [place]. She smoked cigarettes for packs per day for over 30 years and quit 5 years ago. She does not drink alcohol. She drinks 4 cups of coffee a day. She denies any illicit drug use. She does smoke marijuana from time to time for chronic pain and appetite. - POLST Patient has POLST: Yes POLST Status: DNR Meds/Allgy - Home Medications Home Medications: Ambulatory Orders Medication Instructions Recorded Confirmed Albuterol Sulfate [Proair Hfa 1 - 2 puffs INH Q4H PRN 04/24/18 04/24/18 Inhaler] Calcium Carbonate/Vitamin D3 1 each PO DAILY 04/24/18 04/24/18 [Caltrate 600 Plus D3 Tablet] Cholecalciferol [Vitamin D3] 5,000 unit PO DAILY 04/24/18 04/24/18 Diclofenac Sodium [Voltaren] 100 gm TP PRN PRN 04/24/18 04/24/18 Duloxetine HCl 120 mg PO 209904/24/18 04/24/18 Fluticasone/Salmeterol [Advair 2 puffs PO BID 04/24/18 04/24/18 250-50 Diskus] Glucosam/Altaf-Msm1/C/Igor/Bosw 3 tab PO DAILY 04/24/18 04/24/18 [Hgvhckoeztq-Rbuecoctexs-RAA Tb] Levothyroxine Sodium 150 mcg PO 0500 04/24/18 04/24/18 Losartan [Cozaar] 50 mg PO DAILY 04/24/18 04/24/18 Multivitamin/Iron/Folic Acid 1 each PO DAILY 04/24/18 04/24/18 [Centrum Women Tablet] Nortriptyline HCl 50 mg PO 209904/24/18 04/24/18 OLANZapine [Olanzapine] 7.5 mg PO 2100 04/24/18 04/24/18 Pantoprazole [Protonix] 40 mg PO BID 04/24/18 04/24/18 Sucralfate 1 gm PO QID 04/24/18 04/24/18 Vitamin B Complex Vit C No.4 150 mg PO DAILY 04/24/18 04/24/18 [Super B Complex] oxyCODONE [Roxicodone] 20 mg PO TID 04/24/18 04/24/18 traZODone [Desyrel] 150 mg PO HS 04/24/18 04/24/18 - Allergies Allergies/Adverse Reactions: Allergies Allergy/AdvReac Type Severity Reaction Status Date / Time Tetracyclines Allergy Severe Anaphylaxis Verified 04/09/17 20:01 buprenorphine HCl * AdvReac Severe hysterical Verified 04/09/17 20:01 [From Buprenex] fluoxetine HCl * AdvReac Severe suicidal Verified 04/09/17 20:01 [From Prozac] diazepam [From Valium] AdvReac Intermediate violent Verified 04/09/17 20:01 behavoir amitriptyline HCl * AdvReac Unknown pt is Verified 04/09/17 20:01 [From Elavil] unsure, maybe depressed tape AdvReac Intermediate localized Uncoded 09/30/16 12:25 blisters Review of Systems - Constitutional Constitutional: reports: Fatigue - Other Findings Other Findings: A comprehensive review of systems was performed the pertinent positives and negatives are stated above in the HPI and the remainder of the review of systems is negative. Prior Level of Functionality: The patient is limited in her mobility secondary to her chronic pain and this also limits her in her activities of daily living. The patient lives with her daughter who helps her with most things. The patient uses a wheelchair at home. Exam - Vital Signs Reviewed Vital Signs: Yes Vital Signs: Vital Signs x48h Temp Pulse Resp BP Pulse Ox 04/24/18 00:00 37.1 C 105 H 18 176/90 H 95 - Physical Exam General Appearance: positive: Alert, Mild distress (Shortness of breath and coughing), Other (Thin with significant wrinkles, appears older than her stated age) Eyes Bilateral: positive: Normal inspection, PERRL, EOMI, No lid inflammation, Conjunctivae nml, No scleral icterus ENT: positive: ENT inspection nml, Pharynx nml. negative: Purulent nasal drainage, Pharyngeal erythema, Oral lesions Neck: positive: Nml inspection, Thyroid nml, No JVD, Trachea midline. negative: Thyromegaly, Lymphadenopathy (R), Lymphadenopathy (L), Carotid bruit, Tracheal deviation Respiratory: positive: Chest non-tender, Wheezes (Scattered, diffuse expiratory wheezes), Other (Diminished breath sounds bilaterally, patient in mild respiratory distress) Cardiovascular: positive: Regular rate & rhythm, No murmur, No gallop, Systolic murmur Peripheral Pulses: positive: 2+ Abdomen: positive: Non-tender, No organomegaly, Nml bowel sounds, No distention. negative: Guarding, Rebound, Hepatomegaly Back: positive: Nml inspection. negative: CVA tenderness (R), CVA tenderness (L) Skin: positive: Color nml, No rash, Warm, Dry. negative: Cyanosis, Diaphoresis, Pallor Extremities: positive: Non-tender, Full ROM, Nml appearance, No pedal edema Neurologic/Psychiatric: positive: Oriented x3, CN's nml (2-12), Motor nml, Sensation nml, Mood/affect nml Conclusion/Plan - Problem List (1) COPD exacerbation Conclusion/Plan: The patient presented to the emergency department with increasing shortness of breath coughing. She appeared to have a COPD exacerbation with increased wheezing and shortness of breath. She did improve with neb treatments and steroids. However when the patient ambulated she dropped her oxygen saturation down to 85%. The patient is not on any home oxygen. The patient also became very short of breath with exertion and once again had respiratory distress. The patient required further breathing treatments. At this point it was decided the patient needed admission for COPD exacerbation. Chest x-ray was negative for pneumonia. Plan: Duo nebs [id number] times 24 hours and as needed IV Solu-Medrol 40 mg 3 times daily Azithromycin daily given patient's productive cough Supplemental oxygen Patient will need an O2 walk test prior to discharge (2) Hypertension Conclusion/Plan: Patient has a history of hypertension and has an elevated blood pressure on presentation of 176/90. The patient is on losartan at home for her blood pressure. The patient will be continued on her home dose of losartan and we will continue to monitor the patient's blood pressure and titrate medication as needed. Qualifiers: Hypertension type: essential hypertension Qualified Code(s): I10 - Essential (primary) hypertension (3) CHAYITO (obstructive sleep apnea) Conclusion/Plan: The patient does have a history of obstructive sleep apnea and was previously on CPAP but no longer has a CPAP machine. The patient was recently seen by the sleep center but has not yet been tested for CPAP. The patient's CO2 was elevated on her blood chemistry likely secondary to chronic hypercapnia from her COPD and sleep apnea. Patient will need to follow-up with her sleep center as an outpatient once she is discharged. (4) Chronic pain Conclusion/Plan: The patient has a history of chronic pain and is on chronic opioids with oxycodone 20 mg 3 times daily which seems to work best for her pain. The patient will be continued on this dose of oxycodone and also placed on oxycodone 5 mg every 4 hours as needed in case of breakthrough pain. Currently the pain is controlled. Qualifiers: Chronic pain type: other chronic pain Qualified Code(s): G89.29 - Other chronic pain (5) Hypothyroid Conclusion/Plan: The patient has a history of hypothyroidism and is on Synthroid 150 mcg daily. The patient has a TSH of 2.23 which is within normal limits. Patient does not have any symptoms of hypothyroidism. We will continue her on her regular home dose of Synthroid. Qualifiers: Hypothyroidism type: unspecified Qualified Code(s): E03.9 - Hypothyroidism, unspecified (6) GERD (gastroesophageal reflux disease) Conclusion/Plan: The patient has a history of GERD and uses Protonix 40 mg twice a day at home. We will continue the patient on her home dose of Protonix. She also uses sucralfate 1 g 4 times daily with meals and this will also be continued while she is hospitalized. Currently the patient is asymptomatic. Qualifiers: Esophagitis presence: without esophagitis Qualified Code(s): K21.9 - Gastro-esophageal reflux disease without esophagitis (7) Bipolar disorder Conclusion/Plan: The patient has a history of bipolar which appears currently to be stable. The patient sees a psychiatrist at the [facility] by the name of Stephania Garcia. She is well controlled on olanzapine, duloxetine, nortriptyline and trazodone. These medications will be continued while the patient is hospitalized. Qualifiers: Active/Remission status: remission status unspecified Qualified Code(s): F31.9 - Bipolar disorder, unspecified - Lab Results Lab results reviewed: Yes Other Lab Results: WBC 4.8 Hemoglobin 12.7 Platelet count 168 Sodium 140 Potassium 4.0 Chloride 98 Carbon dioxide 33 BUN 18 Creatinine 0.70 Glucose 94 Calcium 9.5 Total bilirubin 0.4 AST 29 ALT 26 Alkaline phosphatase 115 Troponin I 0.014 BNP 74.6 Total protein 7.0 Albumin 4.1 TSH 2.23 - Diagnostic Imaging Results Diagnostic Imaging Results: positive: Final report reviewed Diagnostic Imaging Results Comments: Chest x-ray Impression: No acute pulmonary airspace disease. - EKG Results EKG Interpreted Independently: Yes EKG Comparison: Unchanged from prior EKG EKG Findings: Patient has left bundle branch block which is old and has early repolarization in the anterior leads which is also seen on EKG from 10/05/2015. Core Measures - Anticipated LOS I expect patient to be DC'd or transferred within 96 hours.: Yes - DVT/VTE - Prophylaxis VTE/DVT Prophylaxis med ordered at admit?: Yes
[2018-04-24] MEDS: AZITHROMYCIN INJ 500 MG in SODIUM CHLORIDE 0.9% 250 ML IV SCH (00:58)
[2018-04-24] MEDS: SODIUM CHLORIDE FLUSH 0.9% 10 ML SYRINGE IVP SCH ×3 (01:04→18:09)
[2018-04-24] MEDS: SODIUM CHLORIDE FLUSH 0.9% 10 ML SYRINGE IVP PRN ×4 (01:04→21:27)
[2018-04-24] MEDS ORDERED: oxyCODONE 5 MG TABLET PO STA (01:27)
[2018-04-24] MEDS ORDERED: DICLOFENAC SODIUM 100 GM TP PRN (01:38)
--- NOTE | 2018-04-24 01:50 | XRAY Report ---
Reason: Shortness of breath Procedure Date: 04/24/2018 Accession Number: [id number] / [id number] Procedure: XR - Chest 1 View X-Ray CPT Code: 53569 FULL RESULT: EXAM: CHEST RADIOGRAPHY EXAM DATE: 04/24/2018 01:29 AM. CLINICAL HISTORY: Shortness of breath. COMPARISON: CHEST 2 VIEW PA/LAT 05/31/2016 12:19 AM. TECHNIQUE: 1 view. FINDINGS: Lungs/Pleura: No focal opacities evident. No pleural effusion. No pneumothorax. Mediastinum: Normal heart size. Aortic arch calcifications. There are several calcified mediastinal and left hilar lymph nodes suggesting prior granulomatous disease. Other: Advanced left glenohumeral joint degenerative changes. IMPRESSION: No acute pulmonary airspace disease. RADIA
[2018-04-24] MEDS ORDERED: oxyCODONE 5 MG TABLET PO SCH ×3 (02:00→06:00)
[2018-04-24 06:26] LABS: BASOPHILS % (AUTO) 0.1 %; EOSINOPHILS % (AUTO) 0.1 %; HGB - HEMOGLOBIN 12.5 g/dL (12.0-16.0); LYMPHOCYTES # (AUTO) 0.4 10^3/uL (1.5-3.5); LYMPHOCYTES % (AUTO) 14.3 %; MEAN CORPUSCULAR HEMOGLOBIN 31.4 pg (27.0-31.0); MEAN CORPUSCULAR HGB CONC 33.3 g/dL (32.0-36.0); MEAN CORPUSCULAR VOLUME 94.4 fL (81.0-99.0); MEAN PLATELET VOLUME 8.8 fL (7.9-10.8); MONOCYTES % (AUTO) 0.9 %; NEUTROPHILS # (AUTO) 2.4 10^3/uL (1.5-6.6); NEUTROPHILS % (AUTO) 84.6 %; PLT - PLATELET COUNT 173 10^3/uL (130-450); RED BLOOD COUNT 3.96 10^6/uL (4.20-5.40); RED CELL DISTRIBUTION WIDTH 14.3 % (12.0-15.0); WHITE BLOOD COUNT 2.8 x10^3/uL (4.8-10.8)
[2018-04-24] MEDS: PANTOPRAZOLE 40 MG TABLET PO SCH ×3 (06:35→16:34)
[2018-04-24] MEDS: LEVOTHYROXINE 75 MCG TABLET PO SCH (06:35)
[2018-04-24 06:37] LABS: CALCIUM 9.2 mg/dL (8.5-10.3); CREATININE 0.8 mg/dL (0.4-1.0)
[2018-04-24] MEDS ORDERED: SUCRALFATE 1 GM/10 ML UDC PO SCH (07:00)
[2018-04-24] MEDS ORDERED: LEVOTHYROXINE 100 MCG TABLET PO SCH (07:00)
[2018-04-24] MEDS: IPRATROPIUM/ALBUTEROL 3 ML NEB INH SCH ×5 (07:50→22:31)
[2018-04-24] MEDS: methylPREDNISolone SUCCINATE 40 MG/ML VIAL IVP SCH ×3 (08:24→21:27)
[2018-04-24] MEDS: oxyCODONE 5 MG TABLET PO SCH ×3 (08:25→21:37)
[2018-04-24] MEDS: SACCHAROMYCES BOULARDII 250 MG CAPSULE PO SCH ×2 (08:26→18:09)
[2018-04-24] MEDS: ENOXAPARIN 40 MG/0.4 ML SYRINGE SUBQ SCH (08:27)
[2018-04-24] MEDS: CHOLECALCIFEROL 5,000 UNIT CAPSULE PO SCH (08:27)
[2018-04-24] MEDS: LOSARTAN 50 MG TABLET PO SCH (08:30)
[2018-04-24] MEDS: POLYETHYLENE GLYCOL 3350 17 GM PACKET PO SCH (08:30)
[2018-04-24] MEDS ORDERED: FLUTICASONE NASAL SPRAY NAS SCH (09:00)
[2018-04-24] MEDS ORDERED: amLODIPine 5 MG TABLET PO SCH (09:00)
[2018-04-24] MEDS ORDERED: LOSARTAN 50 MG TABLET PO SCH (09:00)
[2018-04-24] MEDS: SUCRALFATE 1 GM/10 ML UDC PO SCH ×3 (12:31→21:27)
--- NOTE | 2018-04-24 18:53 | PROVIDER PROGRESS NOTE ---
Subjective - Prog Note Date Prog Note Date: 04/24/18 - Subjective Pt reports feeling: Improved Subjective: Patient on 1 litr NC. No fevers, CP/SOB, /GI symptoms. RT raciel evaluate for 02 need tomorrow am. Current Medications - Current Medications Current Medications: Active Medications Acetaminophen (Tylenol) 650 mg PO Q4HR PRN PRN Reason: Pain 1 to 4 Albuterol/Ipratropium (Duoneb) 3 ml INH Q4HR PRN PRN Reason: Wheezing Albuterol/Ipratropium (Duoneb) 3 ml INH RTQID [facility] Stop: 04/24/18 23:44 Last Admin: 04/24/18 17:31 Dose: 3 ml Cholecalciferol (Vitamin D3) 5,000 unit PO DAILY [facility] Last Admin: 04/24/18 08:27 Dose: 5,000 unit Duloxetine HCl (Cymbalta) 120 mg PO 2100 [facility] Enoxaparin Sodium (Lovenox) 40 mg SUBQ DAILY [facility] Last Admin: 04/24/18 08:27 Dose: 40 mg Azithromycin 500 mg/ Sodium (Chloride) 250 mls @ 250 mls/hr IV Q24H [facility] Last Infusion: 04/24/18 01:58 Dose: Infused Levothyroxine Sodium (Synthroid) 150 mcg PO 0500 [facility] Last Admin: 04/24/18 06:35 Dose: 150 mcg Losartan Potassium (Cozaar) 50 mg PO DAILY [facility] Last Admin: 04/24/18 08:30 Dose: 50 mg Methylprednisolone (Solu-Medrol (40mg Vial)) 40 mg IVP TID [facility] Last Admin: 04/24/18 14:08 Dose: 40 mg Naproxen (Naprosyn) 1 mg PO BID PRN PRN Reason: PAIN Nortriptyline HCl (Pamelor) 50 mg PO 2100 [facility] Olanzapine (Zyprexa Odt) 7.5 mg TL 2100 [facility] Ondansetron HCl (Zofran Inj) 4 mg IVP Q6HR PRN PRN Reason: Nausea / Vomiting Oxycodone HCl (Roxicodone) 10 mg PO Q4HR PRN PRN Reason: Pain 8 to 10 Last Admin: 04/24/18 00:58 Dose: 10 mg Oxycodone HCl (Roxicodone) 20 mg PO TID [facility] Last Admin: 04/24/18 14:07 Dose: 20 mg Pantoprazole Sodium (Protonix) 40 mg PO BIDAC [facility] Last Admin: 04/24/18 16:34 Dose: 40 mg Polyethylene Glycol (Miralax) 17 gm PO DAILY [facility] Last Admin: 04/24/18 08:30 Dose: 17 gm Prochlorperazine Edisylate (Compazine Inj) 10 mg IVP Q6HR PRN PRN Reason: Nausea / Vomiting Promethazine HCl (Phenergan Inj) 25 mg IM Q6HR PRN PRN Reason: Nausea / Vomiting Saccharomyces Boulardii (Florastor) 250 mg PO BIDWM [facility] Last Admin: 04/24/18 18:09 Dose: 250 mg Sodium Chloride (Normal Saline Flush 0.9%) 10 ml IVP PRN PRN PRN Reason: NEEDED PER PROVIDER ORDERS Last Admin: 04/24/18 14:08 Dose: 20 ml Sodium Chloride (Normal Saline Flush 0.9%) 10 ml IVP 0100,0900,1700 [facility] Last Admin: 04/24/18 18:09 Dose: 10 ml Sucralfate (Carafate) 1 gm PO 0700,1100,1600,2200 [facility] Last Admin: 04/24/18 16:34 Dose: 1 gm Trazodone HCl (Desyrel) 150 mg PO HS [facility] Zolpidem Tartrate (Ambien) 5 mg PO QPM PRN PRN Reason: Insomnia Albuterol Sulfate [Proair Hfa Inhaler] 1 - 2 puffs INH Q4H PRN 04/24/18 Calcium Carbonate/Vitamin D3 [Caltrate 600 Plus D3 Tablet] 1 each PO DAILY 04/24/18 Cholecalciferol [Vitamin D3] 5,000 unit PO DAILY 04/24/18 Diclofenac Sodium [Voltaren] 100 gm TP PRN PRN 04/24/18 Duloxetine HCl 120 mg PO 2100 04/24/18 Fluticasone/Salmeterol [Advair 250-50 Diskus] 2 puffs PO BID 04/24/18 Glucosam/Altaf-Msm1/C/Igor/Bosw [Alilvcsghvl-Tephyaqpsuv-UQU Tb] 3 tab PO DAILY 04/24/18 Levothyroxine Sodium 150 mcg PO 0500 04/24/18 Losartan [Cozaar] 50 mg PO DAILY 04/24/18 Multivitamin/Iron/Folic Acid [Centrum Women Tablet] 1 each PO DAILY 04/24/18 Nortriptyline HCl 50 mg PO 2100 04/24/18 OLANZapine [Olanzapine] 7.5 mg PO 2100 04/24/18 Pantoprazole [Protonix] 40 mg PO BID 04/24/18 Sucralfate 1 gm PO QID 04/24/18 Vitamin B Complex Vit C No.4 [Super B Complex] 150 mg PO DAILY 04/24/18 oxyCODONE [Roxicodone] 20 mg PO TID 04/24/18 traZODone [Desyrel] 150 mg PO HS 04/24/18 Objective - Vital Signs/Intake & Output Vital Signs: Vital Signs x48h Temp Pulse Pulse Resp BP Pulse Ox 04/24/18 17:31 98 16 04/24/18 15:57 37.2 C 61 18 153/94 H 96 04/24/18 13:15 97 14 Intake & Output: Intake & Output 04/21/18 04/22/18 04/23/18 04/24/18 23:59 23:59 23:59 23:59 Intake Total 1836 Balance 1836 - Objective General Appearance: positive: Anxious, Other (chronically ill-appearing) ENT: positive: ENT inspection nml Neck: positive: Nml inspection, Thyroid nml, No JVD, Trachea midline. negative: Thyromegaly Respiratory: positive: Chest non-tender, No respiratory distress, Rhonchi. negative: Wheezes, Rales Cardiovascular: positive: Regular rate & rhythm, No murmur, No gallop. negative: Tachycardia, JVD present, Gallop/S4 Abdomen: positive: Non-tender, No organomegaly, Nml bowel sounds, No distention. negative: Tenderness Skin: positive: Color nml, No rash, Warm Extremities: positive: Non-tender, Full ROM, Nml appearance, No pedal edema Neurologic/Psychiatric: positive: Oriented x3, Weakness - Lab Results Fish Bones: 04/24/18 05:32 04/24/18 05:32 Other Labs: Lab Results x24hrs 04/24/18 04/24/18 04/24/18 Range/Units 05:32 05:32 00:50 WBC 2.8 L (4.8-10.8) x10^3/uL RBC 3.96 L (4.20-5.40) 10^6/uL Hgb 12.5 (12.0-16.0) g/dL Hct 37.4 (37.0-47.0) % MCV 94.4 (81.0-99.0) fL MCH 31.4 H (27.0-31.0) pg MCHC 33.3 (32.0-36.0) g/dL RDW 14.3 (12.0-15.0) % Plt Count 173 (130-450) 10^3/uL MPV 8.8 (7.9-10.8) fL Neut # (Auto) 2.4 (1.5-6.6) 10^3/uL Lymph # (Auto) 0.4 L (1.5-3.5) 10^3/uL [place] # (Auto) 0.0 (0.0-1.0) 10^3/uL Eos # (Auto) 0.0 (0.0-0.7) 10^3/uL Baso # (Auto) 0.0 (0.0-0.1) 10^3/uL Absolute Nucleated RBC 0.01 x10^3/uL Nucleated RBC % 0.2 /100WBC Sodium 137 (135-145) mmol/L Potassium 4.1 (3.5-5.0) mmol/L Chloride 99 L (101-111) mmol/L Carbon Dioxide 32 (21-32) mmol/L Anion Gap 6.0 (6-13) BUN 17 (6-20) mg/dL Creatinine 0.8 (0.4-1.0) mg/dL Estimated GFR (MDRD) 70 L (>89) Glucose 145 H (70-100) mg/dL Calcium 9.2 (8.5-10.3) mg/dL Troponin I < 0.04 (<0.49) ng/mL - Diagnostic Imaging Diagnostic Imaging Results: positive: Final report reviewed ABX Reporting Has patient been on IV antibiotics over the past 48 hours?: Yes Assessment/Plan - Problem List (1) COPD exacerbation Impression: Will continue to optimize resp function with IV steroids, duonebs, pulm toilet, add singulair and pulmicort to regimen along with aggressive pulm toileting and spirometry, RT to eval for home o2tx need for which she was once on this previously. CXR shows no acute cp process. On IV azithro monotx. May transition to a z-pack soon. (2) Hypertension Impression: resume home meds Qualifiers: Hypertension type: essential hypertension Qualified Code(s): I10 - Essential (primary) hypertension (3) CHAYITO (obstructive sleep apnea) Impression: may need nightime o2 tx if qualifies. Home CPAP if needed. (4) Bipolar disorder Impression: Patient to continue with home meds and ongoing chronic pain meds. Qualifiers: Active/Remission status: remission status unspecified Qualified Code(s): F31.9 - Bipolar disorder, unspecified
[2018-04-24] MEDS ORDERED: traZODone 50 MG TABLET PO SCH (21:00)
[2018-04-24] MEDS ORDERED: NORTRIPTYLINE 25 MG CAPSULE PO SCH (21:00)
[2018-04-24] MEDS ORDERED: MONTELUKAST 10 MG TABLET PO SCH (21:00)
[2018-04-24] MEDS ORDERED: DULoxetine 30 MG CAPSULE PO SCH (21:00)
[2018-04-24] MEDS ORDERED: OLANZapine ODT 5 MG TABLET TL SCH (21:00)
[2018-04-24] MEDS: BUDESONIDE 0.5 MG/2 ML NEB INH SCH (22:31)
[2018-04-25] MEDS: AZITHROMYCIN INJ 500 MG in SODIUM CHLORIDE 0.9% 250 ML IV SCH (00:27)
[2018-04-25] MEDS: SODIUM CHLORIDE FLUSH 0.9% 10 ML SYRINGE IVP SCH ×2 (00:27→09:57)
[2018-04-25] MEDS: methylPREDNISolone SUCCINATE 40 MG/ML VIAL IVP SCH (05:52)
[2018-04-25] MEDS: SODIUM CHLORIDE FLUSH 0.9% 10 ML SYRINGE IVP PRN (05:52)
[2018-04-25] MEDS: oxyCODONE 5 MG TABLET PO SCH ×2 (05:52→13:59)
[2018-04-25] MEDS: LEVOTHYROXINE 75 MCG TABLET PO SCH (05:53)
[2018-04-25] MEDS: PANTOPRAZOLE 40 MG TABLET PO SCH (05:53)
[2018-04-25] MEDS: SUCRALFATE 1 GM/10 ML UDC PO SCH ×2 (05:57→11:09)
[2018-04-25 06:25] LABS: HGB - HEMOGLOBIN 12.5 g/dL (12.0-16.0); LYMPHOCYTES # (AUTO) 0.5 10^3/uL (1.5-3.5); LYMPHOCYTES % (AUTO) 8.7 %; MEAN CORPUSCULAR HEMOGLOBIN 31.7 pg (27.0-31.0); MEAN CORPUSCULAR HGB CONC 33.7 g/dL (32.0-36.0); MEAN PLATELET VOLUME 8.4 fL (7.9-10.8); MONOCYTES # (AUTO) 0.2 10^3/uL (0.0-1.0); MONOCYTES % (AUTO) 4.3 %; NEUTROPHILS # (AUTO) 4.9 10^3/uL (1.5-6.6); PLT - PLATELET COUNT 169 10^3/uL (130-450); RED BLOOD COUNT 3.94 10^6/uL (4.20-5.40); RED CELL DISTRIBUTION WIDTH 14.9 % (12.0-15.0); WHITE BLOOD COUNT 5.6 x10^3/uL (4.8-10.8)
[2018-04-25 06:31] LABS: CALCIUM 9.3 mg/dL (8.5-10.3); CREATININE 0.7 mg/dL (0.4-1.0)
[2018-04-25] MEDS ORDERED: FORMOTEROL FUMARATE NEB 20 MCG/2 ML INH SCH (07:00)
[2018-04-25 07:47] VITALS: BP 140/82
[2018-04-25] MEDS: BUDESONIDE 0.5 MG/2 ML NEB INH SCH (07:51)
[2018-04-25] MEDS: LOSARTAN 50 MG TABLET PO SCH (09:56)
[2018-04-25] MEDS: SACCHAROMYCES BOULARDII 250 MG CAPSULE PO SCH (09:56)
[2018-04-25] MEDS: CHOLECALCIFEROL 5,000 UNIT CAPSULE PO SCH (09:57)
[2018-04-25] MEDS: POLYETHYLENE GLYCOL 3350 17 GM PACKET PO SCH (09:57)
[2018-04-25] MEDS: ENOXAPARIN 40 MG/0.4 ML SYRINGE SUBQ SCH (09:57)
--- NOTE | 2018-04-25 12:26 | Discharge Plan ---
Discharge Plan Disposition: 01 Home, Self Care Condition: Stable Prescriptions: Azithromycin 250 mg PO DAILY #4 tablet Montelukast [Singulair] 10 mg PO QPM #30 tablet predniSONE [Prednisone] 60 mg PO DAILY 7 Days #21 tablet Diet: Regular Activity Restrictions: Activity as Tolerated Assistance Devices: Walker Weight Bearing: Full Weight Instruction Topics: Prednisolone tablets, Montelukast oral tablets, Azithromycin tablets, COPD, Breathing Controlled Dc Additional Instructions or Follow Up instructions: PCP to follow up in 1-2 weeks, PCP to refer to premix operator concentrate for CPAP approval. No Smoking: If you smoke, Please STOP! Call for help.
--- NOTE | 2018-04-25 12:38 | DISCHARGE SUMMARY ---
"Discharge Summary Admit Date: 04/23/18 Discharge Date: 04/25/18 Discharging Provider: Dr. Abbott Primary Care Provider: Ryan PCP Code Status: Do Not Attempt Resuscitation Condition at Discharge: Stable Discharge Disposition: 01 Home, Self Care - DIAGNOSES Admission Diagnoses: Acute COPD exacerbation, Acute hypoxemic resp failure 85% RA. CHAYITO not on CPAP Discharge Diagnoses with Status of Each Condition: - Problem List (1) COPD exacerbation/CHAYITO/Acute hypoxemia RF (resolved) Impression: Currnelty not on CPAP. RT to qualify patient for nightime and or daytime prn oxygen. She did desat to 88% on nightime pox. Will continue to optimize resp function with a resp burst as outpatinet with prednisone 60 mg po daily x 7 more days. Cont with advair, place on new rx singulair, z-pack to continue. CXR shows no acute cp process. (2) Hypertension; stable Impression: resume home meds Qualifiers: Hypertension type: essential hypertension Qualified Code(s): I10 - Essential (primary) hypertension (3) CHAYITO (obstructive sleep apnea); stable Impression: may need nightime o2 tx if qualifies. Needs a referall from her PCP for sleep study and or pulm to eval for CPAP need at home. (4) Bipolar disorder-stable Impression: Patient to continue with home meds and ongoing chronic pain meds. Qualifiers: Active/Remission status: remission status unspecified Qualified Code(s): F31.9 - Bipolar disorder, unspecified - HPI History of Present Illness: Patient is a very pleasant 72-year-old female who looks older than her stated age with a past medical history significant for hypertension, osteoporosis, hypothyroidism, COPD, obstructive sleep apnea not on CPAP, mild pulmonary hypertension, mild aortic stenosis, chronic anemia, GERD, bipolar and chronic pain who presents to the [facility] emergency department with a chief complaint of shortness of breath. The patient states that she was in her normal state of health until about a month ago when she began to develop a upper respiratory infection. She states that off and on for the next 2 weeks she was having shortness of breath and coughing she states that some days were better than others. She states that throughout this entire time she had a productive cough. She states that the symptoms seem to have improved and then 1 week ago she began having diarrhea, nausea and fever. This lasted for a couple of days and then had improved as well. She states that a couple of weeks ago she had gone to a physical therapy appointment at which time she experienced severe shortness of breath with just trying to walk to her daughter's car. She does n ot move around much at home therefore was not experiencing a lot of shortness of breath with exertion. She states however that today she developed severe shortness of breath with just going to the bathroom. Even after she tried to rest she states that she was having a hard time breathing and therefore decided to go to the emergency room to be checked out. The patient states that her cough is getting better. She denies any fevers or chills. She does admit to some wheezing. She denies any chest pain. She denies any orthopnea, PND or any lower extremity swelling. She denies any abdominal pain, nausea or vomiting. The patient does state that she has been having worsening urinary incontinence with all her shortness of breath. Patient denies any headaches, blurred vision, runny nose, sore throat, nasal congestion, difficulty swallowing, diarrhea, constipation, urinary urgency, urinary frequency, dysuria, joint swelling, muscle aches, neck stiffness, recent unintentional weight loss, changes in her appetite, hair loss, skin changes, skin rash, polyuria, polydipsia, dizziness or any focal neurologic deficits. On presentation to the emergency department at [facility] the patient was afebrile but she was tachycardic with some respiratory distress and conversational dyspnea. Her respiratory rate was 23 on presentation and her oxygen saturations were between 89 and 92% on room air. The patient did appear to have diminished breath sounds and had expiratory and inspiratory wheezing on examination. The patient was given several breathing treatments and to 125 mg of IV Solu-Medrol with which the patient did seem to show improvement in her respiratory distress. The emergency room physician then had the patient ambulate to test to see if she was able to go home and when the patient ambulated with walking just 20 feet the patient became very short of breath and oxygen saturation dropped to the mid 80s. It was evident that the patient was not well enough to go home and needed to be admitted for a COPD exacerbation. The patient's chest x-ray did not show any acute process. The patient's EKG was unchanged from previous and troponin was negative. [facility] was on divert and did not have any beds available for the patient. The emergency room physician at [facility] also tried several other hospitals in the area who are all also full including [facility] as the patient is a [facility] patient. Finally she called [facility] and we did have a bed available and took the patient in transfer from their emergency department as a direct admission. The patient was admitted to the [facility] medical dao for COPD exacerbation. - CONSULTS | PROCEDURES Consultations: none Procedures: none - HOSPITAL COURSE Hospital Course: Patient was managed medically placed on IV solumderol, duonebs, continued with aggressive pulm toileting, pulmicort, singulair, RT for re-qualification for home o2 tx with rest and at exercise, nightime pox showed 88%, Patient with hx mild aortic stenosis and pulm htn with CHAYITO and not on CPAP would benefit from home o2 tx as patient will likely develop cor-pulmonale or right sided HF. Unfortunately patient was walked by RT and desat to only 95% on ambulation. Patient did well with montx with IV azithro, will rx singulair, z-pack, resp prednisone burs tof 60 mg po daily for 7d. Instructed on PCP follow up in 1-2 weeks. - ALLERGIES Allergies/Adverse Reactions: Allergies Allergy/AdvReac Type Severity Reaction Status Date / Time Tetracyclines Allergy Severe Anaphylaxis Verified 04/09/17 20:01 buprenorphine HCl * AdvReac Severe hysterical Verified 04/09/17 20:01 [From Buprenex] fluoxetine HCl * AdvReac Severe suicidal Verified 04/09/17 20:01 [From Prozac] diazepam [From Valium] AdvReac Intermediate violent Verified 04/09/17 20:01 behavoir amitriptyline HCl * AdvReac Unknown pt is Verified 04/09/17 20:01 [From Elavil] unsure, maybe depressed tape AdvReac Intermediate localized Uncoded 09/30/16 12:25 blisters - MEDICATIONS Home Medications: Ambulatory Orders Medication Instructions Recorded Confirmed Albuterol Sulfate [Proair Hfa 1 - 2 puffs INH Q4H PRN 04/24/18 04/24/18 Inhaler] Calcium Carbonate/Vitamin D3 1 each PO DAILY 04/24/18 04/24/18 [Caltrate 600 Plus D3 Tablet] Cholecalciferol [Vitamin D3] 5,000 unit PO DAILY 04/24/18 04/24/18 Diclofenac Sodium [Voltaren] 100 gm TP PRN PRN 04/24/18 04/24/18 Duloxetine HCl 120 mg PO 2100 04/24/18 04/24/18 Fluticasone/Salmeterol [Advair 2 puffs PO BID 04/24/18 04/24/18 250-50 Diskus] Glucosam/Altaf-Msm1/C/Igor/Bosw 3 tab PO DAILY 04/24/18 04/24/18 [Evthqrbfinh-Hjppqmafbqi-BXZ Tb] Levothyroxine Sodium 150 mcg PO 0500 04/24/18 04/24/18 Losartan [Cozaar] 50 mg PO DAILY 04/24/18 04/24/18 Multivitamin/Iron/Folic Acid 1 each PO DAILY 04/24/18 04/24/18 [Centrum Women Tablet] Nortriptyline HCl 50 mg PO 2100 04/24/18 04/24/18 OLANZapine [Olanzapine] 7.5 mg PO 2100 04/24/18 04/24/18 Pantoprazole [Protonix] 40 mg PO BID 04/24/18 04/24/18 Sucralfate 1 gm PO QID 04/24/18 04/24/18 Vitamin B Complex Vit C No.4 150 mg PO DAILY 04/24/18 04/24/18 [Super B Complex] oxyCODONE [Roxicodone] 20 mg PO TID 04/24/18 04/24/18 traZODone [Desyrel] 150 mg PO HS 04/24/18 04/24/18 Azithromycin 250 mg PO DAILY #4 tablet 04/25/18 Montelukast [Singulair] 10 mg PO QPM #30 tablet 04/25/18 predniSONE [Prednisone] 60 mg PO DAILY 7 Days #21 tablet 04/25/18 - PHYSICAL EXAM AT DISCHARGE General Appearance: positive: No acute distress, Anxious Neck: positive: Nml inspection Respiratory: positive: Chest non-tender, No respiratory distress, Breath sounds nml Cardiovascular: positive: Regular rate & rhythm Abdomen: positive: Non-tender Rectal: positive: Non-tender Extremities: positive: Non-tender Neurologic/Psychiatric: positive: Oriented x3 - LABS Result Diagrams: 04/25/18 05:30 04/25/18 05:44 - DIAGNOSTIC IMAGING Diagnostic Imaging Results: Final report reviewed - FOLLOW UP Follow Up: PCP in 1-2 weeks. Home o2 qualification pr RT - TIME SPENT Time Spent in Discharge (Minutes): 35"
== END 2018-04-25 14:35 | disposition home or self-care (01) ==
LOC: MS2 23:00 → UNDOADMIN 23:00 → MS2 23:17 → INTOOBSV 23:17
PROVIDERS: ADMIT Internal Medicine; ATTEND Family Medicine
DX: J44.1 Chronic obstructive pulmonary disease with (acute) exacerbation (principal); J96.01 Acute respiratory failure with hypoxia; G47.33 Obstructive sleep apnea (adult) (pediatric); I10 Essential (primary) hypertension; G89.29 Other chronic pain; Z79.891 Long term (current) use of opiate analgesic; E03.9 Hypothyroidism, unspecified; K21.9 Gastro-esophageal reflux disease without esophagitis; F31.9 Bipolar disorder, unspecified; M81.0 Age-related osteoporosis without current pathological fracture; R32 Unspecified urinary incontinence; I35.0 Nonrheumatic aortic (valve) stenosis; F41.9 Anxiety disorder, unspecified; F50.9 Eating disorder, unspecified
CPT/HCPCS: 36415; 71045; 80048; 84484; 85025; 93005; 94640; 94761; 96365; 96366; 96372; 96375; 96376; A9270; G0378; J1650; J7626

== ENCOUNTER 2018-06-29 10:53 | Emergency (ER) | payer MEDICARE ==
[2018-06-29 11:39] LABS: BASOPHILS % (AUTO) 0.6 %; EOSINOPHILS # (AUTO) 0.1 10^3/uL (0.0-0.7); EOSINOPHILS % (AUTO) 2.8 %; HGB - HEMOGLOBIN 12.3 g/dL (12.0-16.0); LYMPHOCYTES # (AUTO) 0.8 10^3/uL (1.5-3.5); LYMPHOCYTES % (AUTO) 17.4 %; MEAN CORPUSCULAR HEMOGLOBIN 31.7 pg (27.0-31.0); MEAN CORPUSCULAR HGB CONC 34.2 g/dL (32.0-36.0); MEAN CORPUSCULAR VOLUME 92.7 fL (81.0-99.0); MEAN PLATELET VOLUME 7.8 fL (7.9-10.8); MONOCYTES # (AUTO) 0.7 10^3/uL (0.0-1.0); MONOCYTES % (AUTO) 14.2 %; PLT - PLATELET COUNT 190 10^3/uL (130-450); RED CELL DISTRIBUTION WIDTH 13.8 % (12.0-15.0); WHITE BLOOD COUNT 4.7 x10^3/uL (4.8-10.8)
[2018-06-29 11:56] LABS: ALBUMIN 3.7 g/dL (3.2-5.5); ALBUMIN/GLOBULIN RATIO 1.4 (1.0-2.2); BILIRUBIN,TOTAL 0.7 mg/dL (0.2-1.0); CALCIUM 9.2 mg/dL (8.5-10.3); TOTAL PROTEIN 6.4 g/dL (6.7-8.2)
--- NOTE | 2018-06-29 12:46 | XRAY Report ---
Reason: Elevated heart rate Procedure Date: 06/29/2018 Accession Number: [id number] / [id number] Procedure: XR - Chest 2 View X-Ray CPT Code: 89263 FULL RESULT: EXAM: CHEST RADIOGRAPHY EXAM DATE: 06/29/2018 12:09 PM. CLINICAL HISTORY: Elevated heart rate. COMPARISON: CHEST 1 VIEW 04/24/2018 1:14 AM. TECHNIQUE: 2 views. FINDINGS: Lungs/Pleura: Lung apices are obscured on the frontal view. No consolidation. No pleural effusions. No vascular congestion. Mediastinum: Cardiomegaly. Aortic atherosclerosis. Calcified mediastinal lymph nodes again seen. Other: Degenerative changes of the thoracic spine and the left shoulder. Superior thoracic kyphosis. Lumbar posterior fusion. IMPRESSION: 1. No acute disease in the chest. RADIA
[2018-06-29 13:51] VITALS: BP 162/93
--- NOTE | 2018-06-29 14:02 | ED Physician Documentation ---
History of Present Illness - Stated complaint Stated Complaint: HR ELEVATED/PANIC ATTACK - Chief complaint Chief Complaint: Cardiac - History obtained from History obtained from: Patient, Family - History of Present Illness Timing: How many weeks ago (2) Pain level max: 0 Pain level now: 0 - Additonal information Additional information: 72-year-old female here with history of hypertension, COPD, sleep apnea, hypothyroid, bipolar disease here With her daughter with complain of panic attacks the past 2 weeks. They had called her psychiatrist to get an appointment but was told to go to the emergency room first to make sure that patient's symptoms such as palpitations and shortness of breath is not cardiac or respiratory issues.Patient denies any chest pain or shortness of breath.Denies any trauma, travel or recent illness.Denies any suicidal ideation, hallucination Review of Systems Ten Systems: 10 systems reviewed and negative Constitutional: denies: Fever, Chills, Myalgias Cardiac: reports: Palpitations. denies: Chest pain / pressure Respiratory: reports: Dyspnea. denies: Cough GI: denies: Abdominal Pain, Nausea, Vomiting Musculoskeletal: denies: Back pain Neurologic: denies: Generalized weakness, Near syncope, Syncope PD PAST MEDICAL HISTORY - Past Medical History Cardiovascular: Hypertension, Murmur Respiratory: COPD, Sleep apnea Neuro: None Endocrine/Autoimmune: HyPOthyroidism GI: GERD : Incontinence HEENT: None Psych: Depression, Anxiety, Bipolar disorder, Eating disorder Musculoskeletal: Osteoarthritis, Chronic back pain Derm: Other drug resistant infections - Past Surgical History Past Surgical History: Yes General: Cholecystectomy Ortho: Hip replacement, Knee replacement, Spine surgery Derm: Skin grafts, Other - Present Medications Home Medications: Ambulatory Orders Medication Instructions Recorded Confirmed RX: Albuterol Sulfate [Proair Hfa 1 - 2 puffs INH Q4H PRN 04/24/18 04/24/18 Inhaler] RX: Calcium Carbonate/Vitamin D3 1 each PO DAILY 04/24/18 04/24/18 [Caltrate 600 Plus D3 Tablet] RX: Cholecalciferol [Vitamin D3] 5,000 unit PO DAILY 04/24/18 04/24/18 RX: Diclofenac Sodium [Voltaren] 100 gm TP PRN PRN 04/24/18 04/24/18 RX: Duloxetine HCl 120 mg PO 2100 04/24/18 04/24/18 RX: Fluticasone/Salmeterol [Advair 2 puffs PO BID 04/24/18 04/24/18 250-50 Diskus] RX: Glucosam/Altaf-Msm1/C/Igor/Bosw 3 tab PO DAILY 04/24/18 04/24/18 [Osacnxkmtvj-Lpdldzprpxb-DAM Tb] RX: Levothyroxine Sodium 150 mcg PO 0500 04/24/18 04/24/18 RX: Losartan [Cozaar] 50 mg PO DAILY 04/24/18 04/24/18 RX: Multivitamin/Iron/Folic Acid 1 each PO DAILY 04/24/18 04/24/18 [Centrum Women Tablet] RX: Nortriptyline HCl 50 mg PO 2100 04/24/18 04/24/18 RX: OLANZapine [Olanzapine] 7.5 mg PO 2100 04/24/18 06/29/18 RX: Pantoprazole [Protonix] 40 mg PO BID 04/24/18 04/24/18 RX: Sucralfate 1 gm PO QID 04/24/18 04/24/18 RX: Vitamin B Complex Vit C No.4 150 mg PO DAILY 04/24/18 06/29/18 [Super B Complex] RX: oxyCODONE [Roxicodone] 20 mg PO TID 04/24/18 06/29/18 RX: traZODone [Desyrel] 150 mg PO HS 04/24/18 04/24/18 RX: Montelukast [Singulair] 10 mg PO QPM #30 tablet 04/25/18 - Allergies Allergies/Adverse Reactions: Allergies Allergy/AdvReac Type Severity Reaction Status Date / Time Tetracyclines Allergy Severe Anaphylaxis Verified 06/29/18 11:18 gabapentin Allergy Edema Verified 06/29/18 11:18 buprenorphine HCl * AdvReac Severe hysterical Verified 06/29/18 11:18 [From Buprenex] fluoxetine HCl * AdvReac Severe suicidal Verified 06/29/18 11:18 [From Prozac] diazepam [From Valium] AdvReac Intermediate violent Verified 06/29/18 11:18 behavoir amitriptyline HCl * AdvReac Unknown pt is Verified 06/29/18 11:18 [From Elavil] unsure, maybe depressed tape AdvReac Intermediate localized Uncoded 06/29/18 11:18 blisters - Social History Does the pt smoke?: No Smoking Status: Never smoker Does the pt drink ETOH?: No Does the pt have substance abuse?: No - Immunizations Immunizations are current?: Yes - POLST Patient has POLST: Yes POLST Status: DNR PD ED PE NORMAL - Vitals Vital signs reviewed: Yes - General General: Alert and oriented X 3, No acute distress, Well developed/nourished - HEENT HEENT: Moist mucous membranes, Pharynx benign - Neck Neck: Supple, no meningeal sign - Cardiac Cardiac: RRR, No murmur - Respiratory Respiratory: No respiratory distress, Clear bilaterally - Abdomen Abdomen: Normal bowel sounds, Soft, Non tender, Non distended - Back Back: No CVA TTP, No spinal TTP - Derm Derm: Normal color, Warm and dry - Extremities Extremities: No deformity - Neuro Neuro: Alert and oriented X 3, No motor deficit, Normal speech - Psych Psych: Normal mood, Normal affect Results - Vitals Vitals: Vital Signs - 24 hr 06/29/18 06/29/18 11:10 13:50 Temperature 36.7 C Heart Rate 99 99 Respiratory 16 16 Rate Blood Pressure 130/91 H 162/93 H O2 Saturation 94 99 Oxygen O2 Source [] Nasal cannula O2 Source [] Nasal cannula O2 Source Room air - EKG (time done) 1110 Rate: Rate (enter#) (100 ) Rhythm: Sinus tachycardia [place]: LAD Intervals: LBBB Ischemia: Non specific changes (Comparing to previous EKG of April 25, 2018 no significant change) - Labs Labs: Laboratory Tests 06/29/18 06/29/18 06/29/18 11:34 11:34 11:34 WBC 4.7 L RBC 3.90 L Hgb 12.3 Hct 36.1 L MCV 92.7 MCH 31.7 H MCHC 34.2 RDW 13.8 Plt Count 190 MPV 7.8 L Neut # (Auto) 3.0 Lymph # (Auto) 0.8 L [place] # (Auto) 0.7 Eos # (Auto) 0.1 Baso # (Auto) 0.0 Absolute Nucleated RBC 0.00 Nucleated RBC % 0.0 Sodium 137 Potassium 3.9 Chloride 97 L Carbon Dioxide 33 H Anion Gap 7.0 BUN 17 Creatinine 1.0 Estimated GFR (MDRD) 54 L Glucose 101 H Calcium 9.2 Total Bilirubin 0.7 AST 26 ALT 17 Alkaline Phosphatase 100 Troponin I < 0.04 Total Protein 6.4 L Albumin 3.7 Globulin 2.7 Albumin/Globulin Ratio 1.4 Lipase 33 PD MEDICAL DECISION MAKING - ED course Complexity details: reviewed results, considered differential (Panic attacks, bipolar, electrolyte imbalance ACS, pneumonia), d/w patient, d/w family ED course: 1345 patient is in no acute distress and nontoxic-appearing. She stated she is ready to go home. Patient daughter inform of test results. Patient will be discharge and will follow up with her primary doctor and psychiatrist. Departure - Departure Disposition: 01 Home, Self Care Clinical Impression: Palpitations, Panic attacks Condition: Stable Instructions: ED Palpitations, ED Panic Attack Comments: Follow-up with your primary doctor and psychiatrist as scheduled. If worse return to the emergency room. Discharge Date/Time: 06/29/18 14:18
== END 2018-06-29 14:18 | disposition home or self-care (01) ==
LOC: ED 10:53
DX: R00.2 Palpitations (principal); F41.0 Panic disorder [episodic paroxysmal anxiety]; I10 Essential (primary) hypertension; J44.9 Chronic obstructive pulmonary disease, unspecified
CPT/HCPCS: 36415; 71046; 80053; 83690; 84484; 85025; 93005; 99283

== ENCOUNTER 2018-08-31 17:26 | Emergency (ER) | payer MEDICARE ==
[2018-08-31] MEDS ORDERED: IPRATROPIUM/ALBUTEROL 3 ML NEB INH STA (18:02)
--- NOTE | 2018-08-31 18:05 | ED Physician Documentation ---
History of Present Illness - Stated complaint Stated Complaint: HBP/L LEG SWELLING - Chief complaint Chief Complaint: General - History obtained from History obtained from: Patient, Family - History of Present Illness Timing: How many days ago (2) Pain level max: 6 Pain level now: 5 Improved by: Rest Worsened by: Walking - Additonal information Additional information: 72-year-old female presents to the emergency department with left lower extremity swelling for the past several days. Noticeably worse than the right. Noticed it was red today. Called her PCP who sent her here for evaluation of possible DVT. She also had some difficulty breathing earlier today that resolved with nebulizer treatment. Review of Systems Constitutional: denies: Fever, Chills Cardiac: denies: Chest pain / pressure Respiratory: reports: Wheezing. denies: Cough GI: denies: Nausea, Vomiting, Diarrhea Skin: denies: Rash Musculoskeletal: denies: Neck pain, Back pain Neurologic: denies: Headache PD PAST MEDICAL HISTORY - Past Medical History Past Medical History: Yes Cardiovascular: Hypertension, Murmur Respiratory: COPD, Sleep apnea Neuro: None Endocrine/Autoimmune: HyPOthyroidism GI: GERD : Incontinence HEENT: None Psych: Depression, Anxiety, Bipolar disorder, Eating disorder Musculoskeletal: Osteoarthritis, Chronic back pain Derm: Other drug resistant infections - Past Surgical History Past Surgical History: Yes General: Cholecystectomy Ortho: Hip replacement, Knee replacement, Spine surgery Derm: Skin grafts, Other - Present Medications Home Medications: Ambulatory Orders Medication Instructions Recorded Confirmed Albuterol Sulfate [Proair Hfa 1 - 2 puffs INH Q4H PRN 04/24/18 04/24/18 Inhaler] Calcium Carbonate/Vitamin D3 1 each PO DAILY 04/24/18 04/24/18 [Caltrate 600 Plus D3 Tablet] Cholecalciferol [Vitamin D3] 5,000 unit PO DAILY 04/24/18 04/24/18 Diclofenac Sodium [Voltaren] 100 gm TP PRN PRN 04/24/18 04/24/18 Duloxetine HCl 120 mg PO 2100 04/24/18 04/24/18 Fluticasone/Salmeterol [Advair 2 puffs PO BID 04/24/18 04/24/18 250-50 Diskus] Glucosam/Altaf-Msm1/C/Igor/Bosw 3 tab PO DAILY 04/24/18 04/24/18 [Dolrioqgmsd-Ydgqjjoculk-NTJ Tb] Levothyroxine Sodium 150 mcg PO 0500 04/24/18 04/24/18 Losartan [Cozaar] 50 mg PO DAILY 04/24/18 04/24/18 Multivitamin/Iron/Folic Acid 1 each PO DAILY 04/24/18 04/24/18 [Centrum Women Tablet] Nortriptyline HCl 50 mg PO 2100 04/24/18 04/24/18 OLANZapine [Olanzapine] 7.5 mg PO 2100 04/24/18 06/29/18 Pantoprazole [Protonix] 40 mg PO BID 04/24/18 04/24/18 Sucralfate 1 gm PO QID 04/24/18 04/24/18 Vitamin B Complex Vit C No.4 150 mg PO DAILY 04/24/18 06/29/18 [Super B Complex] oxyCODONE [Roxicodone] 20 mg PO TID 04/24/18 06/29/18 traZODone [Desyrel] 150 mg PO HS 04/24/18 04/24/18 Montelukast [Singulair] 10 mg PO QPM #30 tablet 04/25/18 Clindamycin HCl [Clindamycin 300MG 300 mg PO Q6H #40 capsule 08/31/18 CAP] - Allergies Allergies/Adverse Reactions: Allergies Allergy/AdvReac Type Severity Reaction Status Date / Time Tetracyclines Allergy Severe Anaphylaxis Verified 06/29/18 11:18 gabapentin Allergy Edema Verified 06/29/18 11:18 buprenorphine HCl * AdvReac Severe hysterical Verified 06/29/18 11:18 [From Buprenex] fluoxetine HCl * AdvReac Severe suicidal Verified 06/29/18 11:18 [From Prozac] diazepam [From Valium] AdvReac Intermediate violent Verified 06/29/18 11:18 behavoir amitriptyline HCl * AdvReac Unknown pt is Verified 06/29/18 11:18 [From Elavil] unsure, maybe depressed tape AdvReac Intermediate localized Uncoded 06/29/18 11:18 blisters - Social History Does the pt smoke?: No Smoking Status: Never smoker Does the pt drink ETOH?: No Does the pt have substance abuse?: No - Immunizations Immunizations are current?: Yes - POLST Patient has POLST: Yes POLST Status: DNR PD ED PE NORMAL - Vitals Vital signs reviewed: Yes - General General: Alert and oriented X 3, No acute distress, Well developed/nourished - HEENT HEENT: PERRL, Moist mucous membranes - Neck Neck: Supple, no meningeal sign - Cardiac Cardiac: RRR - Respiratory Respiratory: No respiratory distress, Other (Mild wheezing bilaterally) - Abdomen Abdomen: Soft, Non tender, Non distended - Derm Derm: Warm and dry - Extremities Extremities: Other (Mild edema to the left lower extremity. Mild erythema, 4 x 8 cm. No crepitus. No drainage. There is calf tenderness. Neurovascularly intact) - Neuro Neuro: Alert and oriented X 3 - Psych Psych: Normal mood, Normal affect Results - Vitals Vitals: Vital Signs - 24 hr 08/31/18 08/31/18 08/31/18 17:30 18:01 18:12 Temperature 36.6 C Heart Rate 102 H 100 100 Respiratory 16 14 20 Rate Blood Pressure 175/90 H 170/90 H O2 Saturation 94 95 08/31/18 20:04 Temperature 37 C Heart Rate 99 Respiratory 16 Rate Blood Pressure 166/87 H O2 Saturation 94 Oxygen O2 Source [With Activity] Nasal cannula O2 Source [Without Activity] Nasal cannula O2 Source Room air - Labs Labs: Laboratory Tests 08/31/18 08/31/18 08/31/18 18:12 18:12 18:12 WBC 4.9 RBC 4.15 L Hgb 13.0 Hct 38.2 MCV 92.0 MCH 31.3 H MCHC 34.1 RDW 14.2 Plt Count 192 MPV 7.6 L Neut # (Auto) 3.3 Lymph # (Auto) 1.0 L [place] # (Auto) 0.5 Eos # (Auto) 0.1 Baso # (Auto) 0.0 Absolute Nucleated RBC 0.00 Nucleated RBC % 0.0 ESR 40 H Sodium 138 Potassium 3.9 Chloride 99 L Carbon Dioxide 30 Anion Gap 9.0 BUN 15 Creatinine 0.8 Estimated GFR (MDRD) 70 L Glucose 101 H Calcium 9.5 C-Reactive Protein 08/31/18 18:12 WBC RBC Hgb Hct MCV MCH MCHC RDW Plt Count MPV Neut # (Auto) Lymph # (Auto) [place] # (Auto) Eos # (Auto) Baso # (Auto) Absolute Nucleated RBC Nucleated RBC % ESR Sodium Potassium Chloride Carbon Dioxide Anion Gap BUN Creatinine Estimated GFR (MDRD) Glucose Calcium C-Reactive Protein 1.0 - Rads (name of study) Chest x-ray Radiology: Prelim report reviewed, EMP read contemporaneously, See rad report (No acute disease) Duplex ultrasound left lower extremity Radiology: Prelim report reviewed, EMP read contemporaneously, See rad report (no dvt) PD MEDICAL DECISION MAKING - ED course Complexity details: reviewed results, re-evaluated patient, considered differential, d/w patient, d/w family ED course: 72-year-old female presents to the emergency department with cellulitis of the left lower extremity. Mild sed rate elevation, negative CRP. No DVT on ultrasound Negative chest x-ray. Will place on clindamycin for home and follow-up closely with her doctor. Patient and family counseled regarding signs and symptoms for which I believe and urgent re-evaluation would be necessary. Patient with good understanding of and agreement to plan and is comfortable going home at this time This document was made in part using voice recognition software. While efforts are made to proofread this document, sound alike and grammatical errors may occur. Departure - Departure Disposition: 01 Home, Self Care Clinical Impression: Cellulitis of left leg Condition: Good Instructions: ED Infec Skin Cellulitis Follow-Up: MARIO COTO MD [Primary Care Provider] - Within 3 Days Prescriptions: Clindamycin HCl [Clindamycin 300MG CAP] 300 mg PO Q6H #40 capsule Comments: Take all antibiotics until gone. Return if you worsen. Follow-up with your doctor for further care. This should improve over the next 24-48 hours, if it is worsening, you need to return for repeat evaluation. Discharge Date/Time: 08/31/18 20:06
[2018-08-31 18:17] LABS: BASOPHILS % (AUTO) 0.5 %; EOSINOPHILS # (AUTO) 0.1 10^3/uL (0.0-0.7); EOSINOPHILS % (AUTO) 2.6 %; LYMPHOCYTES % (AUTO) 20.3 %; MEAN CORPUSCULAR HEMOGLOBIN 31.3 pg (27.0-31.0); MEAN CORPUSCULAR HGB CONC 34.1 g/dL (32.0-36.0); MEAN PLATELET VOLUME 7.6 fL (7.9-10.8); MONOCYTES # (AUTO) 0.5 10^3/uL (0.0-1.0); MONOCYTES % (AUTO) 9.7 %; NEUTROPHILS # (AUTO) 3.3 10^3/uL (1.5-6.6); NEUTROPHILS % (AUTO) 66.9 %; PLT - PLATELET COUNT 192 10^3/uL (130-450); RED BLOOD COUNT 4.15 10^6/uL (4.20-5.40); RED CELL DISTRIBUTION WIDTH 14.2 % (12.0-15.0); WHITE BLOOD COUNT 4.9 x10^3/uL (4.8-10.8)
[2018-08-31 18:24] LABS: CALCIUM 9.5 mg/dL (8.5-10.3); CREATININE 0.8 mg/dL (0.4-1.0)
--- NOTE | 2018-08-31 19:13 | XRAY Report ---
Reason: cough, wheeze Procedure Date: 08/31/2018 Accession Number: [id number] / [id number] Procedure: XR - Chest 2 View X-Ray CPT Code: 11346 FULL RESULT: EXAM: CHEST RADIOGRAPHY EXAM DATE: 08/31/2018 06:58 PM. CLINICAL HISTORY: Cough, wheeze. COMPARISON: CHEST 2 VIEW 06/29/2018 12:00 PM. TECHNIQUE: 2 views. FINDINGS: Lungs/Pleura: No focal opacities evident. No pleural effusion. No pneumothorax. Normal volumes. Mediastinum: There is dense calcification of the aortic arch. There are calcified lymph nodes in the AP window. The heart size is normal. Other: There are findings of surgical fixation of the lumbar spine. IMPRESSION: 1. No evidence of pneumonia or focal acute airspace disease. RADIA
--- NOTE | 2018-08-31 19:16 | Ultrasound Report ---
Reason: LLE swelling, pain, calf Procedure Date: 08/31/2018 Accession Number: [id number] / [id number] Procedure: US - Duplex Ext Veins Left CPT Code: FULL RESULT: EXAM: LEFT LOWER EXTREMITY VENOUS ULTRASOUND EXAM DATE: 08/31/2018 06:49 PM. CLINICAL HISTORY: Left lower extremity swelling, pain, calf COMPARISON: None. TECHNIQUE: Real-time sonographic vascular imaging was performed by the apron trimmer through the lower extremity utilizing both color-flow and Doppler spectral analysis. Multiple financial foundations representative static images were saved for review. FINDINGS: Common Femoral Vein (CFV): Normal. CFV-GSV Junction: Normal. Profunda Femoral Vein (PFV): Normal. Femoral Vein (FV) Prox: Normal. Femoral Vein (FV) Mid: Normal. Femoral Vein (FV) Dist: Normal. Popliteal Vein: Normal. Posterior Tibial Veins: Normal. Peroneal Veins: Normal. Exam is limited by pitting edema. IMPRESSION: No evidence for deep venous thrombosis. See above. RADIA
[2018-08-31] MEDS ORDERED: CLINDAMYCIN 150 MG CAPSULE PO STA (19:43)
[2018-08-31 20:06] VITALS: BP 166/87
== END 2018-08-31 20:06 | disposition home or self-care (01) ==
LOC: ED 17:26
DX: L03.116 Cellulitis of left lower limb (principal); I10 Essential (primary) hypertension; E03.9 Hypothyroidism, unspecified; J44.9 Chronic obstructive pulmonary disease, unspecified; Z96.659 Presence of unspecified artificial knee joint; Z96.649 Presence of unspecified artificial hip joint
CPT/HCPCS: 36415; 71046; 80048; 85025; 85651; 86140; 93971; 94640; 94664; 99283; A9270

== ENCOUNTER 2020-07-31 16:17 | Outpatient (CLI) | payer MEDICARE | END 2020-07-31 16:18 | disposition home or self-care (01) | LOC: COV 16:17 | PROVIDERS: ATTEND Ophthalmology | DX: Z01.812 Encounter for preprocedural laboratory examination (principal); H25.811 Combined forms of age-related cataract, right eye; Z20.822 Contact with and (suspected) exposure to COVID-19 ==

== ENCOUNTER 2020-08-06 08:36 | Day surgery (SDC) | payer MEDICARE ==
[~2020-08-06 08:36] MED LIST: KETOROLAC 0.45% OPHTH DROPS ONE; PHENYLEPHRINE 2.5% OPHTH 2 ML DROPS ONE; PROPARACAINE 0.5% OPHTH DROPS 15 ML ONE
[2020-08-06] MEDS ORDERED: LACTATED RINGERS 500 ML IV ONE ×2 (08:45→10:22)
[2020-08-06] MEDS ORDERED: fentaNYL 100 MCG/2 ML VIAL ONE (09:26)
[2020-08-06] MEDS ORDERED: MIDAZOLAM 2 MG/2 ML VIAL ONE (09:26)
[2020-08-06] MEDS ORDERED: BSS/LIDOCAINE/EPINEPHRINE 1 ML SYRINGE ONE (09:28)
[2020-08-06] MEDS ORDERED: TIMOLOL 0.5% OPHTH DROPS ONE (09:28)
[2020-08-06] MEDS ORDERED: BRIMONIDINE 0.2% OPHTH DROPS 5 ML ONE (09:28)
[2020-08-06] MEDS ORDERED: VANCOMYCIN OPHTHALMI 8MG/0.8ML 8 MG/0.8 ML SYRINGE IO ONE ×2 (09:28→10:02)
[2020-08-06] MEDS ORDERED: EPINEPHrine 1 MG/ML AMP ONE (09:28)
[2020-08-06] MEDS ORDERED: TRIAMCIN/MOXIFLOX OPHTHALMIC 0.6 ML VIAL IO ONE ×2 (09:28→10:02)
--- NOTE | 2020-08-06 09:31 | ANESTHESIA ---
Pre-Anesthesia VS, & Labs - Diagnosis R senile combined cataract - Procedure R extraction cataract w/IOL Vital Signs: Temp Pulse Resp BP Pulse Ox 37.2 C 103 H 18 158/73 H 97 08/06/20 08:45 08/06/20 08:45 08/06/20 08:45 08/06/20 08:45 08/06/20 08:45 Height: 5 ft 2 in Weight (kg): 68.8 kg Body Mass Index: 27.7 BMI Classification: Overweight - NPO >8 hours - Is Patient ?: No - Lab Results Lab results reviewed: Yes Home Medications and Allergies Albuterol Sulfate [Proair Hfa Inhaler] 1 - 2 puffs INH Q4H PRN 04/24/18 Calcium Carbonate/Vitamin D3 [Caltrate 600 Plus D3 Tablet] 1 each PO DAILY 04/24/18 Cholecalciferol [Vitamin D3] 5,000 unit PO DAILY 04/24/18 Diclofenac Sodium [Voltaren] 100 gm TP PRN PRN 04/24/18 Duloxetine HCl 120 mg PO 209904/24/18 Fluticasone/Salmeterol [Advair 250-50 Diskus] 2 puffs PO BID 04/24/18 Glucosam/Altaf-Msm1/C/Igor/Bosw [Hfvgpkexyra-Ihorbrsaunx-BDN Tb] 3 tab PO DAILY 04/24/18 Levothyroxine Sodium 150 mcg PO 0500 04/24/18 Losartan [Cozaar] 50 mg PO DAILY 04/24/18 Multivitamin/Iron/Folic Acid [Centrum Women Tablet] 1 each PO DAILY 04/24/18 Nortriptyline HCl 50 mg PO 209904/24/18 OLANZapine [Olanzapine] 7.5 mg PO 209904/24/18 Pantoprazole [Protonix] 40 mg PO BID 04/24/18 Sucralfate 1 gm PO QID 04/24/18 Vitamin B Complex Vit C No.4 [Super B Complex] 150 mg PO DAILY 04/24/18 oxyCODONE [Roxicodone] 20 mg PO TID 04/24/18 traZODone [Desyrel] 150 mg PO HS 04/24/18 Allergies/Adverse Reactions: Allergies Allergy/AdvReac Type Severity Reaction Status Date / Time Tetracyclines Allergy Severe Anaphylaxis Verified 08/06/20 09:10 gabapentin Allergy Edema Verified 08/06/20 09:10 buprenorphine HCl * AdvReac Severe hysterical Verified 08/06/20 09:10 [From Buprenex] fluoxetine HCl * AdvReac Severe suicidal Verified 08/06/20 09:10 [From Prozac] diazepam [From Valium] AdvReac Intermediate violent Verified 08/06/20 09:10 behavoir amitriptyline HCl * AdvReac Unknown pt is Verified 08/06/20 09:10 [From Elavil] unsure, maybe depressed Latex, Natural Rubber AdvReac Rash Verified 08/06/20 09:10 tape AdvReac Intermediate localized Uncoded 08/06/20 09:10 blisters Anes History & Medical History - Anesthetic History Anesthesia Complications: reports: No previous complications Family history of Anesthesia Complications: Denies Family history of Malignant Hyperthermia: Denies - Medical History Cardiovascular: reports: Hypertension, Murmur Pulmonary: reports: COPD, Sleep apnea Gastrointestinal: reports: Ulcers, Chronic constipation, Cholelithiasis Urinary: reports: None Neuro: reports: None Musculoskeletal: reports: Osteoarthritis, Chronic back pain Endocrine/Autoimmune: reports: HyPOthyroidism Blood Disorders: reports: Anemia Skin: reports: None Smoking Status: Never smoker Psychosocial: reports: Cannabis - Surgical History General: Cholecystectomy, Other Orthopedic: Hip replacement, Knee replacement, Shoulder arthroplasty, Spine surgery Dermatologic: Skin grafts, Other Exam General: Alert, Oriented x3, Cooperative Dental: Dentures full Upper (out), Dentures full Lower (out), Other Mouth Openin Fingerbreadth Mallampati classification: II Thyromental Distance: 4-6 cm Respiratory: Lungs clear, Normal breath sounds, No respiratory distress Cardiovascular: Regular rate Neurological: Normal speech Mental/Cognitive Status: Alert/Oriented X3, Normal for patient, Other (ststes she is forgetfull and loses train of thought easily) Cognitive Status: Memory impairment Plan Anesthesia Type: MAC Consent for Procedure(s) Verified and Reviewed: Yes Code Status: Attempt Resuscitation ASA classification: 3-Severe systemic disease Is this case an emergency?: No
[2020-08-06] MEDS ORDERED: BRIMONIDINE 0.2% OPHTH DROPS 5 ML OPTH ONE (10:01)
[2020-08-06] MEDS ORDERED: CHONDR SULF/HYALURONATE SYRINGE IO ONE (10:01)
[2020-08-06] MEDS ORDERED: TIMOLOL 0.5% OPHTH DROPS OPTH ONE (10:01)
[2020-08-06] MEDS ORDERED: EPINEPHrine 1 MG/ML AMP IR ONE (10:01)
[2020-08-06] MEDS ORDERED: BSS/LIDOCAINE/EPINEPHRINE 1 ML SYRINGE IO ONE (10:02)
[2020-08-06] MEDS ORDERED: PROPARACAINE 0.5% OPHTH DROPS 15 ML EACHEYE ONE (10:02)
--- NOTE | 2020-08-06 10:53 | ANESTHESIA POST OP EVALUATION ---
Anesthesia Post Eval - Post Anesthesia Eval Vitals: Last Vital Signs Temp 37.2 C 08/06/20 08:45 Pulse 86 08/06/20 10:29 Resp 16 08/06/20 10:29 BP 121/70 08/06/20 10:29 Pulse Ox 97 08/06/20 10:29 CV Function Including HR & BP: positive: Stable Pain Control: positive: Satisfactory Nausea & Vomiting: positive: Negative Mental Status: positive: Baseline Respiratory Status: Airway Patent Hydration Status: Satisfactory Anesthesia Complications: positive: None
[2020-08-06 11:00] VITALS: BP 148/71
--- NOTE | 2020-08-20 11:50 | PROCEDURE REPORT ---
DATE OF SERVICE: Physician: Kushal Lainez MD PREOPERATIVE DIAGNOSIS: Visually significant cataract, right eye. This was her first cataract surge ry. POSTOPERATIVE DIAGNOSIS: Visually significant cataract, right eye. This was her first cataract surg jr. PROCEDURE: Phacoemulsification with posterior chamber intraocular lens implant, right eye. SURGEON: Kushal Lainez MD ANESTHESIA: Monitored anesthesia care. COMPLICATIONS: None. OPERATIVE INDICATIONS: This is a 74-year-old woman with progressive vision loss in the right eye due to 2+ nuclear sclerotic cataract. Best corrected visual acuity was 20/125 in the right eye. Indica tions for surgery are overall decrease in vision, difficulty seeing words on a computer screen, diffi culty reading, difficulty seeing words, closed caption or game scores on TV, difficulty seeing street signs, difficulty with glare or bright lights in any situation, and difficulty tracking a golf ball. She says she is also unable to clearly see enough to do much of anything. She loves reading, makin g jewelry, rosalind, etc. She was consented at length concerning risks and benefits of cataract surge ry, after which she expressed a desire to proceed with surgery. OPERATIVE PROCEDURE: Prior to coming into OR in the preanesthesia unit the patient's eye was marked with a Hsay marker for a toric lens and marked at axis 043. Also, this patient has had multiple ba ck surgeries and is very kyphotic requiring us to use a bed in extreme Trendelenburg in order to do t he surgery safely and with a flat face. The patient was taken into OR #3 and placed under monitored anesthesia care. A surgical timeout was conducted, confirming correct patient, correct procedure, an d correct surgical site. She was given topical anesthesia, and prepped and draped in the usual steri le fashion. The eye was entered at the 12 and 9 o'clock positions. Intracameral Shugarcaine was injected into th e anterior chamber, followed by Viscoat. A continuous-tear curvilinear capsulorrhexis was performed. The nucleus was hydrodissected and phacoemulsified. The cortex was evacuated using automated infus ion and aspiration. Provisc was injected in the capsular bag, and a 23.00 toric intraocular lens was inserted into the bag and rotated to axis 043 as marked on the cornea. Infusion and aspiration were used to evacuate the viscoelastic materials. Once again, the axis was verified to be 043. The eye was inflated to physiologic pressure using balanced salt solution and found to be watertight. Approx imately 0.25 mL of a mixture of triamcinolone and moxifloxacin was injected transsclerally into the v itreous in inferotemporal quadrant. An additional 0.55 mL of a mixture of triamcinolone, moxifloxaci n, and vancomycin was injected subconjunctivally in the superior quadrant for infection and inflammat ion prophylaxis. Wound integrity was checked with Weck-Barbara sponges and the axis of the IOL was once again verified to be at 043. The patient was taken from the operating room in good condition and given postoperative i nstructions. TD: 08/06/2020 10:25
== END 2020-08-06 08:37 | disposition home or self-care (01) ==
LOC: SDS 08:36
PROVIDERS: ATTEND Ophthalmology
DX: H25.811 Combined forms of age-related cataract, right eye (principal); I10 Essential (primary) hypertension; J44.9 Chronic obstructive pulmonary disease, unspecified; G47.30 Sleep apnea, unspecified; E03.9 Hypothyroidism, unspecified; E66.3 Overweight; Z68.27 Body mass index [BMI] 27.0-27.9, adult
CPT/HCPCS: 66984; A9270; J3490; J7120

== ENCOUNTER 2020-08-31 08:00 | Outpatient (CLI) | payer MEDICARE | END 2020-08-31 23:59 | disposition home or self-care (01) | LOC: COV 08:00 | PROVIDERS: ATTEND Ophthalmology | DX: Z01.812 Encounter for preprocedural laboratory examination (principal); H25.812 Combined forms of age-related cataract, left eye; Z20.822 Contact with and (suspected) exposure to COVID-19 ==

== ENCOUNTER 2020-09-03 07:29 | Day surgery (SDC) | payer MEDICARE ==
[2020-09-03] MEDS ORDERED: LACTATED RINGERS 1,000 ML IV ONE (07:55)
[2020-09-03] MEDS ORDERED: MIDAZOLAM 2 MG/2 ML VIAL ONE (08:15)
[2020-09-03] MEDS ORDERED: fentaNYL 100 MCG/2 ML VIAL ONE (08:16)
--- NOTE | 2020-09-03 08:16 | ANESTHESIA ---
Pre-Anesthesia VS, & Labs - Diagnosis L cataract - Procedure L PhacoIOL Vital Signs: Temp Pulse Resp BP Pulse Ox 36.6 C 105 H 17 168/83 H 94 09/03/20 07:44 09/03/20 07:44 09/03/20 07:44 09/03/20 07:44 09/03/20 07:44 Height: 5 ft 2 in Weight (kg): 68.9 kg Body Mass Index: 27.8 BMI Classification: Overweight - NPO >8 hours - Is Patient ?: No Home Medications and Allergies Albuterol Sulfate [Proair Hfa Inhaler] 1 - 2 puffs INH Q4H PRN 04/24/18 Calcium Carbonate/Vitamin D3 [Caltrate 600 Plus D3 Tablet] 1 each PO DAILY 04/24/18 Cholecalciferol [Vitamin D3] 5,000 unit PO DAILY 04/24/18 Diclofenac Sodium [Voltaren] 100 gm TP PRN PRN 04/24/18 Duloxetine HCl 120 mg PO 209904/24/18 Fluticasone/Salmeterol [Advair 250-50 Diskus] 2 puffs PO BID 04/24/18 Glucosam/Altaf-Msm1/C/Igor/Bosw [Wcijckexllw-Nkqbnqrwnee-ZMW Tb] 3 tab PO DAILY 04/24/18 Levothyroxine Sodium 150 mcg PO 0500 04/24/18 Losartan [Cozaar] 50 mg PO DAILY 04/24/18 Multivitamin/Iron/Folic Acid [Centrum Women Tablet] 1 each PO DAILY 04/24/18 Nortriptyline HCl 50 mg PO 209904/24/18 OLANZapine [Olanzapine] 7.5 mg PO 209904/24/18 Pantoprazole [Protonix] 40 mg PO BID 04/24/18 Sucralfate 1 gm PO QID 04/24/18 Vitamin B Complex Vit C No.4 [Super B Complex] 150 mg PO DAILY 04/24/18 oxyCODONE [Roxicodone] 20 mg PO TID 04/24/18 traZODone [Desyrel] 150 mg PO HS 04/24/18 Allergies/Adverse Reactions: Allergies Allergy/AdvReac Type Severity Reaction Status Date / Time Tetracyclines Allergy Severe Anaphylaxis Verified 09/02/20 12:42 gabapentin Allergy Edema Verified 09/02/20 12:42 buprenorphine HCl * AdvReac Severe hysterical Verified 09/02/20 12:42 [From Buprenex] fluoxetine HCl * AdvReac Severe suicidal Verified 09/02/20 12:42 [From Prozac] diazepam [From Valium] AdvReac Intermediate violent Verified 09/02/20 12:42 behavoir amitriptyline HCl * AdvReac Unknown pt is Verified 09/02/20 12:42 [From Elavil] unsure, maybe depressed Latex, Natural Rubber AdvReac Rash Verified 09/02/20 12:42 tape AdvReac Intermediate localized Uncoded 09/02/20 12:42 blisters Anes History & Medical History - Anesthetic History Family history of Anesthesia Complications: Denies Family history of Malignant Hyperthermia: Denies - Medical History Cardiovascular: reports: Hypertension, Murmur Pulmonary: reports: COPD, Sleep apnea Gastrointestinal: reports: GERD Urinary: reports: Incontinence Neuro: reports: None Musculoskeletal: reports: Osteoarthritis, Chronic back pain Endocrine/Autoimmune: reports: HyPOthyroidism Blood Disorders: reports: Anemia Skin: reports: Other drug resistant infections Smoking Status: Never smoker - Surgical History General: reports: Cholecystectomy Eyes Ears Nose Throat (EENT): reports: Cataracts Orthopedic: reports: Hip replacement, Knee replacement, Spine surgery Dermatologic: reports: Skin grafts, Other Exam Dental: WNL Mouth Openin Fingerbreadth Neck Mobility: Limited Thyromental Distance: less than 4 cm Respiratory: Lungs clear Cardiovascular: Regular rate Abdomen: Normal bowel sounds Extremities: No clubbing Neurological: Normal gait Mental/Cognitive Status: Alert/Oriented X3 Cognitive Status: Within normal limits Plan Anesthesia Type: MAC Consent for Procedure(s) Verified and Reviewed: Yes Code Status: Attempt Resuscitation ASA classification: 3-Severe systemic disease Is this case an emergency?: No
[2020-09-03] MEDS ORDERED: BSS/LIDOCAINE/EPINEPHRINE 1 ML SYRINGE ONE (08:19)
[2020-09-03] MEDS ORDERED: TRIAMCIN/MOXIFLOX OPHTHALMIC 0.6 ML VIAL IO ONE ×2 (08:19→08:53)
[2020-09-03] MEDS ORDERED: VANCOMYCIN OPHTHALMI 8MG/0.8ML 8 MG/0.8 ML SYRINGE IO ONE ×2 (08:19→08:54)
[2020-09-03] MEDS ORDERED: TIMOLOL 0.5% OPHTH DROPS ONE (08:19)
[2020-09-03] MEDS ORDERED: EPINEPHrine 1 MG/ML AMP ONE (08:19)
[2020-09-03] MEDS ORDERED: BRIMONIDINE 0.2% OPHTH DROPS 5 ML ONE (08:19)
[2020-09-03] MEDS ORDERED: BRIMONIDINE 0.2% OPHTH DROPS 5 ML OPTH ONE (08:52)
[2020-09-03] MEDS ORDERED: EPINEPHrine 1 MG/ML AMP IR ONE (08:52)
[2020-09-03] MEDS ORDERED: CHONDR SULF/HYALURONATE SYRINGE IO ONE (08:53)
[2020-09-03] MEDS ORDERED: BSS/LIDOCAINE/EPINEPHRINE 1 ML SYRINGE IO ONE (08:53)
[2020-09-03] MEDS ORDERED: PROPARACAINE 0.5% OPHTH DROPS 15 ML EACHEYE ONE (08:53)
[2020-09-03] MEDS ORDERED: TIMOLOL 0.5% OPHTH DROPS OPTH ONE (08:53)
[2020-09-03] MEDS ORDERED: LACTATED RINGERS 100 ML IV ONE (09:15)
[2020-09-03 09:38] VITALS: BP 132/61
--- NOTE | 2020-09-03 10:49 | ANESTHESIA POST OP EVALUATION ---
Anesthesia Post Eval - Post Anesthesia Eval Vitals: Last Vital Signs Temp 36.7 C 09/03/20 09:37 Pulse 95 09/03/20 09:37 Resp 16 09/03/20 09:37 BP 132/61 H 09/03/20 09:37 Pulse Ox 98 09/03/20 09:37 CV Function Including HR & BP: positive: Stable Pain Control: positive: Satisfactory Nausea & Vomiting: positive: Negative Mental Status: positive: Baseline Respiratory Status: Airway Patent Hydration Status: Satisfactory Anesthesia Complications: positive: None
--- NOTE | 2020-09-03 10:49 | OPERATIVE REPORT ---
DATE OF SERVICE: 09/03/2020 Physician: Kushal Lainez MD PREOPERATIVE DIAGNOSES: Complex visually significant cataract, left eye, complex due to poor pupil dilation requiring Malyugin ring for mechanical dilation. Also of note, this patient is extremely kyphotic, requiring max Trendelenburg in order to get her face reasonably flat for surgery. Cataract surgery was performed on the right eye on 08/06/2020. POSTOPERATIVE DIAGNOSES: Complex visually significant cataract, left eye, complex due to poor pupil dilation requiring Malyugin ring for mechanical dilation. Also of note, this patient is extremely kyphotic, requiring max Trendelenburg in order to get her face reasonably flat for surgery. Cataract surgery was performed on the right eye on 08/06/2020. PROCEDURE: Phacoemulsification with posterior chamber intraocular lens implant, left eye. SURGEON: Kushal Lainez MD. ANESTHESIA: Monitored anesthesia care. COMPLICATIONS: None. OPERATIVE INDICATIONS: This is a 74-year-old woman with progressive vision loss in the left eye due to 2+ nuclear sclerotic and 2+ cortical cataract. Best corrected visual acuity was 20/70 in the left eye. Indications for surgery were overall decrease in vision, difficulty reading, difficulty seeing words, closed caption or game scores on TV, difficulty driving in low light or at night, difficulty driving at night because of headlights from other vehicles, and difficulty with glare or bright lights in any situation. She was consented at length concerning risks and benefits of cataract surgery, after which she expressed a desire to proceed with surgery. OPERATIVE PROCEDURE: The patient was taken into OR #3 and placed under monitored anesthesia care. A surgical timeout was conducted, confirming correct patient, correct procedure, and correct surgical site. She was given topical anesthesia and prepped and draped in usual sterile fashion. The eye was entered at the 6 and 3 o'clock positions. Intracameral Shugarcaine was injected into the anterior chamber followed by Viscoat. A Malyugin ring was injected into the anterior chamber and engaged the pupil margin at four points to dilate the pupil. A continuous-tear curvilinear capsulorrhexis was performed. The nucleus was hydrodissected and phacoemulsified. The cortex was evacuated using automated infusion and aspiration. Provisc was injected in the capsular bag and a 23.0 diopter intraocular lens inserted in the bag. The Malyugin ring was then disengaged from the pupil margin and removed from the eye. Infusion and aspiration were used to evacuate the viscoelastic materials. The eye was inflated to physiologic pressure using balanced salt solution and found to be watertight. Approximately 0.25 mL mixture of triamcinolone and moxifloxacin was injected transsclerally into the vitreous in the inferotemporal quadrant. An additional 0.55 mL of a mixture of triamcinolone, moxifloxacin, and vancomycin was injected subconjunctivally in the superior quadrant for infection and inflammation prophylaxis. Wound integrity was checked with Weck-Barbara sponges. The patient was taken from the operating room in good condition and given postoperative instructions. TD: 09/03/2020 09:45 ARACELI
== END 2020-09-03 07:30 | disposition home or self-care (01) ==
LOC: SDS 07:29
PROVIDERS: ATTEND Ophthalmology
DX: H25.812 Combined forms of age-related cataract, left eye (principal); I10 Essential (primary) hypertension; J44.9 Chronic obstructive pulmonary disease, unspecified; G47.30 Sleep apnea, unspecified; M40.209 Unspecified kyphosis, site unspecified; R01.1 Cardiac murmur, unspecified; D64.9 Anemia, unspecified; K21.9 Gastro-esophageal reflux disease without esophagitis; F32.9 Major depressive disorder, single episode, unspecified; R32 Unspecified urinary incontinence; G89.29 Other chronic pain; M54.9 Dorsalgia, unspecified; M19.90 Unspecified osteoarthritis, unspecified site; E66.3 Overweight; Z68.27 Body mass index [BMI] 27.0-27.9, adult; Z98.1 Arthrodesis status; Z86.73 Personal history of transient ischemic attack (TIA), and cerebral infarction without residual deficits; Z87.891 Personal history of nicotine dependence; Z79.891 Long term (current) use of opiate analgesic; Z79.51 Long term (current) use of inhaled steroids; Z79.899 Other long term (current) drug therapy
CPT/HCPCS: 66982; A9270; J3490; J7120; V2632

== ENCOUNTER 2021-04-16 18:08 | Emergency (ER) | payer MEDICARE ==
[2021-04-16] MEDS ORDERED: CLINDAMYCIN 150 MG CAPSULE PO STA (19:35)
--- NOTE | 2021-04-16 19:37 | ED Physician Documentation ---
History of Present Illness - Stated complaint Stated Complaint: LT HIP WOUND - Chief complaint Chief Complaint: Wound - History obtained from History obtained from: Patient, Family - History of Present Illness Timing: How many weeks ago (2-3) Pain level max: 0 Pain level now: 0 - Additonal information Additional information: Patient is a 75-year-old female brought in by her daughter today. She has had a pressure ulcer on the left buttock for the past 3 to 4 weeks. They have been taking care of it at home but has been getting worse. Her daughter called her primary care doctor today to set up a referral for wound care. They were told that they need to come to the emergency department to have the wound evaluated first. No fevers. No chills. No abdominal pain. No nausea or vomiting. Review of Systems Constitutional: denies: Fever, Chills GI: denies: Vomiting, Diarrhea Skin: denies: Rash Musculoskeletal: denies: Neck pain, Back pain Neurologic: denies: Headache PD PAST MEDICAL HISTORY - Past Medical History Past Medical History: Yes Cardiovascular: Hypertension, Murmur Respiratory: COPD, Sleep apnea Neuro: None Endocrine/Autoimmune: HyPOthyroidism GI: GERD : Incontinence HEENT: None Psych: Depression, Anxiety, Bipolar disorder, Eating disorder Musculoskeletal: Osteoarthritis, Chronic back pain Derm: Other drug resistant infections - Past Surgical History Past Surgical History: Yes General: Cholecystectomy Ortho: Hip replacement, Knee replacement, Spine surgery Derm: Skin grafts, Other - Present Medications Home Medications: Ambulatory Orders Medication Instructions Recorded Confirmed Albuterol Sulfate [Proair Hfa 1 - 2 puffs INH Q4H PRN 04/24/18 09/02/20 Inhaler] Calcium Carbonate/Vitamin D3 1 each PO DAILY 04/24/18 09/02/20 [Caltrate 600 Plus D3 Tablet] Cholecalciferol [Vitamin D3] 5,000 unit PO DAILY 04/24/18 09/02/20 Diclofenac Sodium [Voltaren] 100 gm TP PRN PRN 04/24/18 09/02/20 Duloxetine HCl 120 mg PO 2100 04/24/18 09/02/20 Fluticasone/Salmeterol [Advair 2 puffs PO BID 04/24/18 09/02/20 250-50 Diskus] Glucosam/Altaf-Msm1/C/Igor/Bosw 3 tab PO DAILY 04/24/18 09/02/20 [Pvngcysvncr-Cciqbdoupku-ABX Tb] Levothyroxine Sodium 150 mcg PO 0500 04/24/18 09/02/20 Losartan [Cozaar] 50 mg PO DAILY 04/24/18 09/02/20 Multivitamin/Iron/Folic Acid 1 each PO DAILY 04/24/18 09/02/20 [Centrum Women Tablet] Nortriptyline HCl 50 mg PO 2100 04/24/18 09/02/20 OLANZapine [Olanzapine] 7.5 mg PO 2100 04/24/18 09/02/20 Pantoprazole [Protonix] 40 mg PO BID 04/24/18 09/02/20 Sucralfate 1 gm PO QID 04/24/18 09/02/20 Vitamin B Complex Vit C No.4 150 mg PO DAILY 04/24/18 09/02/20 [Super B Complex] oxyCODONE [Roxicodone] 20 mg PO TID 04/24/18 09/02/20 traZODone [Desyrel] 150 mg PO HS 04/24/18 09/02/20 Montelukast [Singulair] 10 mg PO QPM #30 tablet 04/25/18 09/02/20 clindamycin HCL [Cleocin HCl] 300 mg PO Q6H #40 cap 04/16/21 - Allergies Allergies/Adverse Reactions: Allergies Allergy/AdvReac Type Severity Reaction Status Date / Time Tetracyclines Allergy Severe Anaphylaxis Verified 04/16/21 18:13 gabapentin Allergy Edema Verified 04/16/21 18:13 buprenorphine HCl * AdvReac Severe hysterical Verified 04/16/21 18:13 [From Buprenex] fluoxetine HCl * AdvReac Severe suicidal Verified 04/16/21 18:13 [From Prozac] diazepam [From Valium] AdvReac Intermediate violent Verified 04/16/21 18:13 behavoir amitriptyline HCl * AdvReac Unknown pt is Verified 04/16/21 18:13 [From Elavil] unsure, maybe depressed Latex, Natural Rubber AdvReac Rash Verified 04/16/21 18:13 tape AdvReac Intermediate localized Uncoded 04/16/21 18:13 blisters - Social History Does the pt smoke?: No Smoking Status: Never smoker Does the pt drink ETOH?: No Does the pt have substance abuse?: No - Immunizations Immunizations are current?: Yes - POLST Patient has POLST: Yes POLST Status: DNR PD ED PE NORMAL - Vitals Vital signs reviewed: Yes - General General: Alert and oriented X 3, No acute distress - HEENT HEENT: Moist mucous membranes - Neck Neck: Supple, no meningeal sign - Cardiac Cardiac: RRR, Strong equal pulses - Respiratory Respiratory: No respiratory distress, Clear bilaterally - Derm Derm: Warm and dry - Extremities Extremities: No edema, Other (There is a wound to the left buttock, erythema is about 4x4 cm and a 1 x 1 cm area is round with small amount of purulent drainage. No fluctuance. No bony exposure.) - Neuro Neuro: Alert and oriented X 3 - Psych Psych: Normal mood, Normal affect Results - Vitals Vitals: Vital Signs - 24 hr 04/16/21 04/16/21 04/16/21 18:13 18:44 19:13 Temperature 36.7 C 36.1 C L Heart Rate 100 84 91 Respiratory 16 22 Rate Blood Pressure 144/71 H 158/96 H 151/73 H O2 Saturation 98 96 04/16/21 04/16/21 19:49 19:50 Temperature Heart Rate 82 64 Respiratory 22 Rate Blood Pressure 175/80 H 175/80 H O2 Saturation 96 Oxygen O2 Source [With Activity] Nasal cannula O2 Source [Without Activity] Nasal cannula O2 Source Room air - Labs Labs: Microbiology 04/16/21 19:37 Wound Culture - Preliminary Buttock - Left PD MEDICAL DECISION MAKING - ED course Complexity details: reviewed results, re-evaluated patient, considered differential, d/w patient ED course: Patient with a pressure ulcer to the left buttock. Mild drainage. This was cultured. Will place on antibiotics. No indication for drainage. Does not need hospitalization. No fevers. No chills. No evidence of sepsis. Mepitel was placed over the wound and we will have the daughter change the outer dressings. Patient and family counseled regarding signs and symptoms for which I believe and urgent re-evaluation would be necessary. Patient with good understanding of and agreement to plan and is comfortable going home at this time This document was made in part using voice recognition software. While efforts are made to proofread this document, sound alike and grammatical errors may occur. Departure - Departure Disposition: 01 Home, Self Care Clinical Impression: Pressure ulcer Qualifiers: Pressure injury location: unspecified location Pressure injury stage: unstageable Qualified Code(s): L89.95 - Pressure ulcer of unspecified site, unstageable Condition: Good Instructions: ED Wound Care Follow-Up: MALDONADO HORTON PA-C [Primary Care Provider] - Within 1 week Prescriptions: clindamycin HCL [Cleocin HCl] 300 mg PO Q6H #40 cap Comments: Your prescription was sent to [facility] in [place]. You will need a referral to wound care from your primary care provider. Keep the wound clean. Take all antibiotics until gone. A wound culture was sent today as well. Leave the mepitel in place for 7 days. You can change the outer dressing. Discharge Date/Time: 04/16/21 19:52
[2021-04-16 19:50] VITALS: BP 175/80
== END 2021-04-16 19:52 | disposition home or self-care (01) ==
LOC: ED 18:08
DX: L89.320 Pressure ulcer of left buttock, unstageable (principal); I10 Essential (primary) hypertension; Z66 Do not resuscitate
CPT/HCPCS: 87070; 87077; 87205; 99283; 99284; A9270

== ENCOUNTER 2021-06-04 13:08 | Outpatient (CLI) | payer MEDICARE ==
[2021-06-04 14:27] LABS: MUDS CUTOFF CONCENTRATIONS CUTOFF CONC BELOW:
[2021-06-04 14:44] LABS: AMPHETAMINE SCREEN,URINE NEGATIVE (NEGATIVE); BENZODIAZEPINES SCREEN, URINE NEGATIVE (NEGATIVE); COCAINE SCREEN URINE NEGATIVE (NEGATIVE); METHAMPHETAMINES SCREEN, URINE NEGATIVE (NEGATIVE); OPIATE SCREEN, URINE NEGATIVE (NEGATIVE); THC CANNABINOID SCREEN, URINE POSITIVE (NEGATIVE)
[2021-06-04 14:45] LABS: BARBITURATE SCREEN,UR NEGATIVE (NEGATIVE); METHADONE SCREEN, URINE NEGATIVE (NEGATIVE); OXYCODONE SCREEN, URINE POSITIVE (NEGATIVE); PROPOXYPHENE SCREEN, URINE NEGATIVE (NEGATIVE); TRICYCLIC ANTIDEPRESSANT,URINE POSITIVE (NEGATIVE)
== END 2021-06-04 13:09 | disposition home or self-care (01) ==
LOC: LAB 13:08
PROVIDERS: ATTEND Student in an Organized Health Care Education/Training Program
DX: M54.2 Cervicalgia (principal); M54.50 Low back pain, unspecified; G89.29 Other chronic pain
CPT/HCPCS: 80306

== ENCOUNTER 2021-06-04 13:30 | Outpatient (CLI) | payer MEDICARE | END 2021-06-04 13:31 | disposition home or self-care (01) | LOC: RT 13:30 | PROVIDERS: ATTEND Student in an Organized Health Care Education/Training Program | DX: R94.31 Abnormal electrocardiogram [ECG] [EKG] (principal); M54.2 Cervicalgia; M54.50 Low back pain, unspecified; G89.29 Other chronic pain | CPT/HCPCS: 80306; 93005 ==

== ENCOUNTER 2021-12-10 11:50 | Emergency (ER) | payer MEDICARE ==
[2021-12-10] MEDS ORDERED: IPRATROPIUM/ALBUTEROL 3 ML NEB INH STA ×2 (12:03→12:50)
[2021-12-10] MEDS ORDERED: predniSONE 20 MG TABLET PO STA (12:04)
--- NOTE | 2021-12-10 12:07 | ED Physician Documentation ---
History of Present Illness - Stated complaint Stated Complaint: SOA - Chief complaint Chief Complaint: Resp - Additonal information Additional information: 76-year-old female presents emergency department for evaluation of 2 weeks productive cough and increasing dyspnea. Reports a history of COPD. Wears oxygen nighttime only. Over the last few weeks she has had an increasingly productive cough low-grade temperature elevations. She denies chest pain, hemoptysis, syncope. No leg swelling. Family has been giving her as needed albuterol nebulizers without improvement in symptoms. Fully vaccinated for COVID 19 and boosted. Did have a negative COVID test yesterday. Review of Systems Constitutional: reports: Fever Eyes: reports: Reviewed and negative Ears: reports: Reviewed and negative Throat: reports: Reviewed and negative Cardiac: reports: Reviewed and negative Respiratory: reports: Dyspnea, Cough, Wheezing. denies: Hemoptysis GI: reports: Reviewed and negative : reports: Reviewed and negative Skin: reports: Reviewed and negative PD PAST MEDICAL HISTORY - Past Medical History Cardiovascular: Hypertension, Murmur Respiratory: COPD, Sleep apnea Neuro: None Endocrine/Autoimmune: HyPOthyroidism GI: GERD : Incontinence HEENT: None Psych: Depression, Anxiety, Bipolar disorder, Eating disorder Musculoskeletal: Osteoarthritis, Chronic back pain Derm: Other drug resistant infections - Past Surgical History Past Surgical History: Yes General: Cholecystectomy Ortho: Hip replacement, Knee replacement, Spine surgery Derm: Skin grafts, Other - Present Medications Home Medications: Ambulatory Orders Medication Instructions Recorded Confirmed Albuterol Sulfate [Proair Hfa 1 - 2 puffs INH Q4H PRN 04/24/18 12/10/21 Inhaler] Calcium Carbonate/Vitamin D3 1 each PO DAILY 04/24/18 12/10/21 [Caltrate 600 Plus D3 Tablet] Cholecalciferol [Vitamin D3] 5,000 unit PO DAILY 04/24/18 12/10/21 Duloxetine HCl 120 mg PO 2100 04/24/18 12/10/21 Glucosam/Altaf-Msm1/C/Igor/Bosw 3 tab PO DAILY 04/24/18 12/10/21 [Pckrooqwjqu-Ebdbgxbbojq-CQM Tb] Levothyroxine Sodium 150 mcg PO 0500 04/24/18 12/10/21 Losartan [Cozaar] 50 mg PO DAILY 04/24/18 12/10/21 Multivitamin/Iron/Folic Acid 1 each PO DAILY 04/24/18 12/10/21 [Centrum Women Tablet] Nortriptyline HCl 50 mg PO 2100 04/24/18 12/10/21 OLANZapine [Olanzapine] 15 mg PO 2100 04/24/18 12/10/21 Pantoprazole [Protonix] 40 mg PO BID 04/24/18 12/10/21 Sucralfate 1 gm PO QID 04/24/18 12/10/21 Vitamin B Complex Vit C No.4 150 mg PO DAILY 04/24/18 12/10/21 [Super B Complex] oxyCODONE [Roxicodone] 20 mg PO TID 04/24/18 12/10/21 traZODone [Desyrel] 150 mg PO HS 04/24/18 12/10/21 Montelukast [Singulair] 10 mg PO QPM #30 tablet 04/25/18 12/10/21 Amox/Clav 875/125 [Augmentin] 1 each PO Q12H #20 tablet 12/10/21 Azithromycin [Zithromax] 0 mg PO DAILY #6 tablet 12/10/21 Budesonide [Pulmicort] 1 puffs INH Q4HR PRN 12/10/21 12/10/21 Famotidine [Pepcid] 20 mg PO BID 12/10/21 12/10/21 Guaifenesin/Pseudoephedrne HCl 1 tablet PO BID PRN #30 tablet 12/10/21 [Mucinex D ER 600-60 mg Tablet] Ipratropium/Albuterol [Duoneb] 1 puffs INH BID PRN 12/10/21 12/10/21 Oxybutynin [Ditropan] 5 mg PO BID 12/10/21 12/10/21 buPROPion HCL [Bupropion HCl] 75 mg PO DAILY 12/10/21 12/10/21 predniSONE [Deltasone] 40 mg PO DAILY 5 Days #10 tablet 12/10/21 - Allergies Allergies/Adverse Reactions: Allergies Allergy/AdvReac Type Severity Reaction Status Date / Time Tetracyclines Allergy Severe Anaphylaxis Verified 04/16/21 18:13 divalproex sodium Allergy Unknown Verified 12/10/21 12:05 gabapentin Allergy Edema Verified 04/16/21 18:13 lamotrigine Allergy Edema Verified 12/10/21 12:05 buprenorphine HCl * AdvReac Severe hysterical Verified 04/16/21 18:13 [From Buprenex] fluoxetine HCl * AdvReac Severe suicidal Verified 04/16/21 18:13 [From Prozac] diazepam [From Valium] AdvReac Intermediate violent Verified 04/16/21 18:13 behavoir amitriptyline HCl * AdvReac Unknown pt is Verified 04/16/21 18:13 [From Elavil] unsure, maybe depressed clindamycin AdvReac Cramps Verified 12/10/21 12:05 Latex, Natural Rubber AdvReac Rash Verified 04/16/21 18:13 tape AdvReac Intermediate localized Uncoded 04/16/21 18:13 blisters - Social History Does the pt smoke?: No Smoking Status: Never smoker Does the pt drink ETOH?: No Does the pt have substance abuse?: No - Immunizations Immunizations are current?: Yes - POLST Patient has POLST: Yes POLST Status: DNR PD ED PE EXPANDED - General General: Alert, No acute distress, Other (severely kyphotic) - Cardiac Cardiac: Regular Rate, Murmur Present (5/6 systolic murmur), Radial strong equal, Cap refill < 2 sec - Respiratory Respiratory: Labored (mild tachypnea and difficulty speaking full sentences), Wheezing (diffuse expiratory wheeze). No: Distress - Abdomen Abdomen: Normal Bowel sounds. No: Tender to palpation - Back Back: Other (Severe thoracic kyphosis) - Derm Derm: Normal color. No: Warm and dry - Extremities Extremities: Normal, Pedal Pulses Present. No: Deformity, Tenderness, Pedal edema bilateral - Neuro Neuro: Alert and Oriented X 3, CNII-XII intact, Normal speech - GCS Eye Opening: Spontaneous Motor: Obeys Commands Verbal: Oriented Total: 15 Results - Vitals Vitals: Vital Signs - 24 hr 12/10/21 12/10/21 12/10/21 11:58 12:01 12:23 Temperature 36.8 C 36.8 C Heart Rate 100 100 96 Respiratory 17 17 19 Rate Blood Pressure 163/89 H 163/89 H O2 Saturation 92 92 Oxygen O2 Source [With Activity] Nasal cannula O2 Source [Without Activity] Nasal cannula O2 Source Room air Oxygen Flow Rate 2 - Labs Labs: Laboratory Tests 12/10/21 12/10/21 12/10/21 12:12 12:12 12:12 WBC 6.1 RBC 3.90 L Hgb 12.1 Hct 37.7 MCV 96.7 MCH 31.0 MCHC 32.1 RDW 12.8 Plt Count 201 MPV 9.7 Neut # (Auto) 4.6 Lymph # (Auto) 0.7 L Glades # (Auto) 0.7 Eos # (Auto) 0.1 Baso # (Auto) 0.0 Absolute Nucleated RBC 0.00 Nucleated RBC % 0.0 Sodium 137 Potassium 4.1 Chloride 96 L Carbon Dioxide 33 H Anion Gap 8.0 BUN 29 H Creatinine 0.8 Estimated GFR (MDRD) 70 L Glucose 91 Calcium 9.7 Total Bilirubin 0.5 AST 24 ALT 20 Alkaline Phosphatase 85 B-Natriuretic Peptide 80 Total Protein 7.4 Albumin 3.9 Globulin 3.5 Albumin/Globulin Ratio 1.1 Lipase 31 - Rads (name of study) CXR Radiology: Final report received (Borderline cardiomegaly with diffuse interstitial prominence and suspected bilateral pleural effusions may represent early pulmonary edema/CHF. Patchily bibasilar opacities more pronounced on left may represent atelectasis versus early developing airspace disease/pneumonia) PD MEDICAL DECISION MAKING - ED course Complexity details: reviewed results, re-evaluated patient, considered differential, d/w patient ED course: 76-year-old female who has a history of COPD presents to the emergency department for evaluation of 2 weeks of worsening productive cough and dyspnea. She wears oxygen at nighttime only. On presentation she was initially mildly tachypneic with respiratory rate in the high 20s but room air saturations 92 to 96%. She did have diffuse wheezes present. Some of her respiratory exam is markedly limited secondary to severe kyphosis. A chest x-ray suggest possible early pleural effusions or CHF. However the patient has a BNP that is normal and low no lower extremity edema. Clinically my suspicion for acute CHF is low. Patient was initially given a DuoNeb with marked improvement in her wheeze and reduced tachypnea. This was then repeated. At this juncture she appears improved and will be treated for a COPD exacerbation to include a prescription for an additional 5 days of prednisone, azithromycin and Augmentin. She will continue her nebulizers at home. Emergent return precautions discussed for failure symptoms to improve. Departure - Departure Clinical Impression: COPD with acute exacerbation Condition: Stable Record reviewed to determine appropriate education?: Yes Instructions: COPD Dc Prescriptions: Amox/Clav 875/125 [Augmentin] 1 each PO Q12H #20 tablet predniSONE [Deltasone] 40 mg PO DAILY 5 Days #10 tablet Guaifenesin/Pseudoephedrne HCl [Mucinex D ER 600-60 mg Tablet] 1 tablet PO BID PRN #30 tablet PRN Reason: Cough Azithromycin [Zithromax] 0 mg PO DAILY #6 tablet Comments: Mica you were seen today in the emergency department because you have had a worsening cough and shortness of air over the last 2 weeks. I suspect that you are having a COPD exacerbation. In order to manage this I would like you to fill the prescription for the prednisone to begin taking for the next 5 days. The chest x-ray suggest that you may also be developing an early pneumonia on the left lower part of your lung. 2 antibiotics have also been sent to the pharmacy. You can continue your Robitussin at home. I would like you to do your DuoNeb nebulizer every 4 hours for the next 24 or so hours. With the steroids and antibiotics I would expect improved cough and shortness of air over the next 48 to 72 hours. If not improving, get suddenly worse, is associated with any fainting episodes or chest pain then please return immediately to the ER for repeat evaluation Your prescriptions have been sent electronically to the [facility] in [place]
[2021-12-10 12:17] LABS: BASOPHILS % (AUTO) 0.3 %; EOSINOPHILS # (AUTO) 0.1 10^3/uL (0.0-0.7); EOSINOPHILS % (AUTO) 2.1 %; HCT - HEMATOCRIT 37.7 % (37.0-47.0); HGB - HEMOGLOBIN 12.1 g/dL (12.0-16.0); LYMPHOCYTES # (AUTO) 0.7 10^3/uL (1.5-3.5); LYMPHOCYTES % (AUTO) 11.1 %; MEAN CORPUSCULAR HGB CONC 32.1 g/dL (32.0-36.0); MEAN CORPUSCULAR VOLUME 96.7 fL (81.0-99.0); MEAN PLATELET VOLUME 9.7 fL (7.9-10.8); MONOCYTES # (AUTO) 0.7 10^3/uL (0.0-1.0); NEUTROPHILS # (AUTO) 4.6 10^3/uL (1.5-6.6); NEUTROPHILS % (AUTO) 75.2 %; PLT - PLATELET COUNT 201 10^3/uL (130-450); RED CELL DISTRIBUTION WIDTH 12.8 % (12.0-15.0); WHITE BLOOD COUNT 6.1 x10^3/uL (4.8-10.8)
[2021-12-10 12:33] LABS: ALBUMIN 3.9 g/dL (3.2-5.5); ALBUMIN/GLOBULIN RATIO 1.1 (1.0-2.2); BILIRUBIN,TOTAL 0.5 mg/dL (0.2-1.0); CALCIUM 9.7 mg/dL (8.5-10.3); CREATININE 0.8 mg/dL (0.4-1.0); POTASSIUM 4.1 mmol/L (3.5-5.0); TOTAL PROTEIN 7.4 g/dL (6.7-8.2)
--- NOTE | 2021-12-10 12:58 | XRAY Report ---
PROCEDURE: Chest 2 View X-Ray INDICATIONS: cough TECHNIQUE: 2 view(s) of the chest. COMPARISON: 08/31/2018 FINDINGS: Surgical changes and devices: Partially imaged lumbar spinal fusion hardware.. Lungs and pleura: No pleural effusions or pneumothorax. Mild diffuse interstitial prominence with pa tchy bibasilar opacities most pronounced in the left lung base. No pneumothorax seen. Hazy opacities of the bilateral costophrenic angles and slight blunting on the lateral view suggesting small bilater al pleural effusions. Mediastinum: Mediastinal contours are normal. Heart size is mildly enlarged. Atherosclerotic calci fications of the aortic arch are present. Bones and chest wall: No suspicious bony abnormalities. Soft tissues appear unremarkable. IMPRESSION: Borderline cardiomegaly with diffuse interstitial prominence and suspected small bilateral pleural ef fusions may represent early pulmonary edema/CHF. However, a concurrent infectious or inflammatory pro cess not excluded if clinically appropriate. Patchy bibasilar opacities more pronounced on the left m ay represent atelectasis versus early developing airspace disease/pneumonia. Reviewed by: Abdulkadir Beauchamp MD on 12/10/2021 12:57 PM PDT Approved by: Abdulkadir Beauchamp MD on 12/10/2021 12:57 PM PDT Station ID: [id number]
[2021-12-10 13:53] VITALS: BP 148/88
== END 2021-12-10 13:51 | disposition home or self-care (01) ==
LOC: ED 11:50
DX: J44.1 Chronic obstructive pulmonary disease with (acute) exacerbation (principal); Z99.81 Dependence on supplemental oxygen; I10 Essential (primary) hypertension
CPT/HCPCS: 36415; 71046; 80053; 83690; 83880; 85025; 94640; 99283; 99284; J7512

== ENCOUNTER 2022-07-20 12:20 | Outpatient (CLI) | payer MEDICARE ==
[2022-07-20 13:25] LABS: BILIRUBIN,URINE NEGATIVE (NEGATIVE); GLUCOSE, URINE (UA) NEGATIVE (NEGATIVE); KETONES,URINE (UA) NEGATIVE (NEGATIVE); LEUKOCYTE ESTERASE, URINE NEGATIVE (NEGATIVE); NITRITE,URINE NEGATIVE (NEGATIVE); OCCULT BLOOD,URINE NEGATIVE (NEGATIVE); PROTEIN,URINE NEGATIVE (NEGATIVE); UROBILINOGEN,URINE 0.2 (NORMAL) E.U./dL (NORMAL)
[2022-07-20 13:29] LABS: CLARITY,URINE CLEAR (CLEAR)
[2022-07-20 13:45] LABS: WBC,URINE 0-3 /HPF (0-5)
[2022-07-20 13:46] LABS: BACTERIA,URINE Rare /HPF (None Seen); RBC,URINE 0-5 /HPF (0-5); SQUAMOUS EPITHELIAL CELL,UR RARE Squamous (<= Few)
== END 2022-07-20 12:21 | disposition home or self-care (01) ==
LOC: LAB 12:20
PROVIDERS: ATTEND Student in an Organized Health Care Education/Training Program
DX: R32 Unspecified urinary incontinence (principal)
CPT/HCPCS: 81001; 87086

== ENCOUNTER 2022-09-24 19:05 | Emergency (ER) | payer MEDICARE ==
[2022-09-24 19:30] VITALS: BP 159/87
[2022-09-24] MEDS ORDERED: SODIUM CHLORIDE 0.9% 1,000 ML IV STA (19:38)
[2022-09-24] MEDS ORDERED: IPRATROPIUM/ALBUTEROL 3 ML NEB INH STA (19:38)
--- NOTE | 2022-09-24 19:40 | ED Physician Documentation ---
PD HPI DYSPNEA - Stated complaint Stated Complaint: SOA,C,F,CONGESTION - Chief complaint Chief Complaint: Resp - History obtained from History obtained from: Patient, Family - Additional information Additional information: Khloe is a fifi 76-year-old woman with history of heart murmur and COPD. She wears oxygen at night. She had 2 days of productive cough of yellow sputum, mild chest pressure, some fevers at home and shortness of breath. She denies pedal edema or calf pain. She is fully immunized against COVID but did not home test. She is here with her daughter and voices intent to go home to be with her dog "MG," a white small poodle tonight. PD PAST MEDICAL HISTORY - Past Medical History Cardiovascular: Hypertension, Murmur Respiratory: COPD, Sleep apnea Neuro: None Endocrine/Autoimmune: HyPOthyroidism GI: GERD : Incontinence HEENT: None Psych: Depression, Anxiety, Bipolar disorder, Eating disorder Musculoskeletal: Osteoarthritis, Chronic back pain Derm: Other drug resistant infections - Past Surgical History Past Surgical History: Yes General: Cholecystectomy Ortho: Hip replacement, Knee replacement, Spine surgery Derm: Skin grafts, Other - Present Medications Home Medications: Ambulatory Orders Medication Instructions Recorded Confirmed Albuterol Sulfate [Proair Hfa 1 - 2 puffs INH Q4H PRN 04/24/18 12/10/21 Inhaler] Calcium Carbonate/Vitamin D3 1 each PO DAILY 04/24/18 12/10/21 [Caltrate 600 Plus D3 Tablet] Cholecalciferol [Vitamin D3] 5,000 unit PO DAILY 04/24/18 12/10/21 Duloxetine HCl 120 mg PO 209904/24/18 12/10/21 Glucosam/Altaf-Msm1/C/Igor/Bosw 3 tab PO DAILY 04/24/18 12/10/21 [Syrxyligrew-Lsilmqxashk-RQQ Tb] Levothyroxine Sodium 150 mcg PO 0500 04/24/18 12/10/21 Losartan [Cozaar] 50 mg PO DAILY 04/24/18 12/10/21 Multivitamin/Iron/Folic Acid 1 each PO DAILY 04/24/18 12/10/21 [Centrum Women Tablet] Nortriptyline HCl 50 mg PO 209904/24/18 12/10/21 OLANZapine [Olanzapine] 15 mg PO 209904/24/18 12/10/21 Pantoprazole [Protonix] 40 mg PO BID 04/24/18 12/10/21 Sucralfate 1 gm PO QID 04/24/18 12/10/21 Vitamin B Complex Vit C No.4 150 mg PO DAILY 04/24/18 12/10/21 [Super B Complex] oxyCODONE [Roxicodone] 20 mg PO TID 04/24/18 12/10/21 traZODone [Desyrel] 150 mg PO HS 04/24/18 12/10/21 Montelukast [Singulair] 10 mg PO QPM #30 tablet 04/25/18 12/10/21 Amox/Clav 875/125 [Augmentin] 1 each PO Q12H #20 tablet 12/10/21 Azithromycin [Zithromax] 0 mg PO DAILY #6 tablet 12/10/21 Budesonide [Pulmicort] 1 puffs INH Q4HR PRN 12/10/21 12/10/21 Famotidine [Pepcid] 20 mg PO BID 12/10/21 12/10/21 Guaifenesin/Pseudoephedrne HCl 1 tablet PO BID PRN #30 tablet 12/10/21 [Mucinex D ER 600-60 mg Tablet] Ipratropium/Albuterol [Duoneb] 1 puffs INH BID PRN 12/10/21 12/10/21 Oxybutynin [Ditropan] 5 mg PO BID 12/10/21 12/10/21 buPROPion HCL [Bupropion HCl] 75 mg PO DAILY 12/10/21 12/10/21 predniSONE [Deltasone] 40 mg PO DAILY 5 Days #10 tablet 12/10/21 Albuterol 2.5 mg INH Q4H PRN #30 ml 09/24/22 Amoxicillin 500 mg PO TID #30 cap 09/24/22 predniSONE [Deltasone] 20 mg PO [id number] #21 tab 09/24/22 - Allergies Allergies/Adverse Reactions: Allergies Allergy/AdvReac Type Severity Reaction Status Date / Time Tetracyclines Allergy Severe Anaphylaxis Verified 09/24/22 19:28 divalproex sodium Allergy Unknown Verified 09/24/22 19:28 gabapentin Allergy Edema Verified 09/24/22 19:28 lamotrigine Allergy Edema Verified 09/24/22 19:28 buprenorphine HCl * AdvReac Severe hysterical Verified 09/24/22 19:28 [From Buprenex] fluoxetine HCl * AdvReac Severe suicidal Verified 09/24/22 19:28 [From Prozac] diazepam [From Valium] AdvReac Intermediate violent Verified 09/24/22 19:28 behavoir amitriptyline HCl * AdvReac Unknown pt is Verified 09/24/22 19:28 [From Elavil] unsure, maybe depressed clindamycin AdvReac Cramps Verified 09/24/22 19:28 Latex, Natural Rubber AdvReac Rash Verified 09/24/22 19:28 tape AdvReac Intermediate localized Uncoded 09/24/22 19:28 blisters - Social History Does the pt smoke?: No Smoking Status: Never smoker Does the pt drink ETOH?: No Does the pt have substance abuse?: No - Immunizations Immunizations are current?: Yes - POLST Patient has POLST: Yes POLST Status: DNR PD ED PE NORMAL - Vitals Vital signs reviewed: Yes (Moderate resting tachycardia which she says is chronic) - General General: Alert and oriented X 3, No acute distress - Neck Neck: Other (Significant kyphosis) - Cardiac Cardiac: Other (Tachycardic but regular with a 2 out of 6 systolic murmur) - Respiratory Respiratory: Other (Diminished and wheezy throughout without significant distress) - Abdomen Abdomen: Soft, Non tender - Derm Derm: No rash - Extremities Extremities: No edema, No calf tenderness / cord - Neuro Neuro: Alert and oriented X 3, Normal speech Results - Vitals Vitals: Vital Signs - 24 hr 09/24/22 09/24/22 09/24/22 19:10 19:24 19:45 Temperature 37.2 C Heart Rate 125 H 118 H Respiratory 24 20 Rate Blood Pressure 159/87 H O2 Saturation 92 96 If not protocol 1 1 : Oxygen Flow, liters/minute Oxygen O2 Source [With Activity] Nasal cannula O2 Source [Without Activity] Nasal cannula O2 Source Nasal cannula Oxygen Flow Rate 2 - EKG (time done) 1951 EKG releavant findings:: EKG personally interpreted by author of this note. Relevant findings are: Rate: Rate (enter#) (114) Rhythm: Sinus tachycardia Intervals: LBBB - Labs Labs: Laboratory Tests 09/24/22 09/24/22 09/24/22 19:44 20:12 20:12 WBC 9.6 RBC 4.19 L Hgb 12.9 Hct 39.8 MCV 95.0 MCH 30.8 MCHC 32.4 RDW 12.9 Plt Count 161 MPV 9.8 Neut # (Auto) 8.2 H Lymph # (Auto) 0.5 L [place] # (Auto) 0.8 Eos # (Auto) 0.0 Baso # (Auto) 0.0 Absolute Nucleated RBC 0.00 Nucleated RBC % 0.0 Sodium 135 Potassium 3.6 Chloride 95 L Carbon Dioxide 29 Anion Gap 11.0 BUN 18 Creatinine 0.6 Estimated GFR (MDRD) 97 Glucose 129 H Calcium 9.4 Phosphorus 3.2 Magnesium 1.8 Nasal Adenovirus (PCR) NOT DETECTED Nasal B. parapertussis DNA (PCR) NOT DETECTED Nasal Coronavir 229E PCR NOT DETECTED Nasal Coronavir HKU1 PCR NOT DETECTED Nasal Coronavir NL63 PCR NOT DETECTED Nasal Coronavir OC43 PCR NOT DETECTED Nasal Enterovir/Rhinovir PCR NOT DETECTED Nasal Influenza B PCR NOT DETECTED Nasal Influenza A PCR NOT DETECTED Nasal Parainfluen 1 PCR NOT DETECTED Nasal Parainfluen 2 PCR NOT DETECTED Nasal Parainfluen 3 PCR NOT DETECTED Nasal Parainfluen 4 PCR NOT DETECTED Nasal RSV (PCR) NOT DETECTED Nasal B.pertussis DNA PCR NOT DETECTED Nasal C.pneumoniae (PCR) NOT DETECTED [place] Human Metapneumo PCR NOT DETECTED Nasal M.pneumoniae (PCR) NOT DETECTED Nasal SARS-CoV-2 (PCR) NOT DETECTED PD Medical Decision Making - ED course ED course: 76-year-old woman with history of COPD presents with apparent exacerbation of same. Examination is not consistent with CHF. Nothing really to suggest PE. She was feeling much better after a DuoNeb here. Single view chest x-ray was without pneumonia. CBC, BMP, and bio fire respiratory panel were normal/negative. Departure - Departure Disposition: 01 Home, Self Care Clinical Impression: COPD exacerbation Condition: Good Record reviewed to determine appropriate education?: Yes Instructions: COPD Dc Prescriptions: Albuterol 2.5 mg INH Q4H PRN #30 ml PRN Reason: Wheezing Amoxicillin 500 mg PO TID #30 cap predniSONE [Deltasone] 20 mg PO [id number] #21 tab Comments: Call your doctor to arrange a follow-up appointment, make the next available appointment. In the interim, return anytime if worse or if new symptoms develop.
--- NOTE | 2022-09-24 20:01 | XRAY Report ---
PROCEDURE: Chest 1 View X-Ray INDICATIONS: cough TECHNIQUE: One view of the chest was acquired. COMPARISON: 12/10/2021, 08/31/2018 FINDINGS: Surgical changes and devices: None. Lungs and pleura: An incomplete inspiratory result is noted, with low lung volumes and crowding of t he vascular markings. No focal infiltrates are seen. No large pneumothorax or large pleural effusion can be seen. Mediastinum: The aorta is prominent and tortuous. The cardiac contours are at the upper limits of no rmal. Bones and chest wall: Age-appropriate degenerative changes are seen. No suspicious bony lesions. O verlying soft tissues appear unremarkable. IMPRESSION: Low lung volumes, without an acute abnormality seen by plain film. Reviewed by: Chris Tomlin MD on 09/24/2022 6:59 PM KEVIN Approved by: Chris Tomlin MD on 09/24/2022 6:59 PM KEVIN Station ID: [id number]
[2022-09-24 20:19] LABS: BASOPHILS % (AUTO) 0.3 %; EOSINOPHILS % (AUTO) 0.3 %; HCT - HEMATOCRIT 39.8 % (37.0-47.0); HGB - HEMOGLOBIN 12.9 g/dL (12.0-16.0); LYMPHOCYTES # (AUTO) 0.5 10^3/uL (1.5-3.5); LYMPHOCYTES % (AUTO) 5.2 %; MEAN CORPUSCULAR HEMOGLOBIN 30.8 pg (27.0-31.0); MEAN CORPUSCULAR HGB CONC 32.4 g/dL (32.0-36.0); MEAN PLATELET VOLUME 9.8 fL (7.9-10.8); MONOCYTES # (AUTO) 0.8 10^3/uL (0.0-1.0); MONOCYTES % (AUTO) 8.3 %; NEUTROPHILS # (AUTO) 8.2 10^3/uL (1.5-6.6); NEUTROPHILS % (AUTO) 85.6 %; PLT - PLATELET COUNT 161 10^3/uL (130-450); RED BLOOD COUNT 4.19 10^6/uL (4.20-5.40); RED CELL DISTRIBUTION WIDTH 12.9 % (12.0-15.0); WHITE BLOOD COUNT 9.6 x10^3/uL (4.8-10.8)
[2022-09-24 20:30] LABS: CALCIUM 9.4 mg/dL (8.5-10.3); CREATININE 0.6 mg/dL (0.4-1.0); MAGNESIUM 1.8 mg/dL (1.7-2.8); PHOSPHORUS 3.2 mg/dL (2.5-4.6); POTASSIUM 3.6 mmol/L (3.5-5.0)
[2022-09-24 20:45] LABS: CORONAVIRUS 229E-RESP PCR NOT DETECTED; CORONAVIRUS HKU1-RESP PCR NOT DETECTED; CORONAVIRUS NL63-RESP PCR NOT DETECTED; CORONAVIRUS OC43-RESP PCR NOT DETECTED; HUMAN METAPNEUMOVIRUS NOT DETECTED; INFLUENZA A- RESP PCR PANEL NOT DETECTED; RHINOVIRUS/ENTEROVIRUS NOT DETECTED; SARS-CoV-2 -RESP PCR PANEL NOT DETECTED
[2022-09-24 20:46] LABS: B. PARAPERTUSSIS- RESP PCR PAN NOT DETECTED; B. PERTUSSIS- RESP PCR PANEL NOT DETECTED; C. PNEUMONIAE- RESP PCR PANEL NOT DETECTED; INFLUENZA B - RESP PCR PANEL NOT DETECTED; M. PNEUMONIAE- RESP PCR PANEL NOT DETECTED; PARAINFLUENZA VIRUS 1 NOT DETECTED; PARAINFLUENZA VIRUS 2 NOT DETECTED; PARAINFLUENZA VIRUS 3 NOT DETECTED; PARAINFLUENZA VIRUS 4 NOT DETECTED; RSV- RESP PCR PANEL NOT DETECTED
[2022-09-24] MEDS ORDERED: predniSONE 20 MG TABLET PO STA (20:54)
[2022-09-24] MEDS ORDERED: AMOXICILLIN 250 MG CAPSULE PO STA (20:55)
== END 2022-09-24 21:29 | disposition home or self-care (01) ==
LOC: ED 19:05
DX: J44.1 Chronic obstructive pulmonary disease with (acute) exacerbation (principal); Z99.81 Dependence on supplemental oxygen; I10 Essential (primary) hypertension; Z20.822 Contact with and (suspected) exposure to COVID-19
CPT/HCPCS: 36415; 71045; 80048; 83735; 84100; 85025; 87633; 93005; 94640; 99284; A9270; J7512

== ENCOUNTER 2022-09-26 14:32 | Emergency (ER) | payer MEDICARE ==
--- NOTE | 2022-09-26 14:57 | ED Physician Documentation ---
ED Addendum - Addendum Addendum: 09/26/22 14:57 Dr. Salinas was resuscitating this patient, I intubated the patient. See attached note Procedures - Intubation - Major Provider: Emergency physician Blade: Glidescope Tube: Size-enter number (7.5), Cuffed, Marked at lips-enter cm (24) Route: Oral Confirmation: Direct visualization, Bilateral breath sounds, End tidal CO2 Complications: No compications
--- NOTE | 2022-09-26 15:01 | ED Physician Documentation ---
History of Present Illness - Stated complaint Stated Complaint: UNRESPONSIVE - History obtained from History obtained from: Family - Additonal information Additional information: Patient is brought here by her daughter via private vehicle after chief complaint shortness of breath and not feeling well. The daughter states that the patient was seen here 2 nights ago for COPD exacerbation and was doing better after being sent home but started to feel worse again this morning. About 10 minutes before they got here, the patient suddenly turned sky and passed out and daughter states that the patient has been unresponsive since. The patient is not able to offer any information and was found pulseless in the car. Review of the records reveals that the patient had an essentially negative work-up when she was seen here couple of nights ago and wished to go home. She had presented with fevers and shortness of breath and was treated for COPD exacerbation. She has been on antibiotics since her visit to the emergency department. PD PAST MEDICAL HISTORY - Past Medical History Cardiovascular: Hypertension, Murmur Respiratory: COPD, Sleep apnea Neuro: None Endocrine/Autoimmune: HyPOthyroidism GI: GERD : Incontinence HEENT: None Psych: Depression, Anxiety, Bipolar disorder, Eating disorder Musculoskeletal: Osteoarthritis, Chronic back pain Derm: Other drug resistant infections - Past Surgical History Past Surgical History: Yes General: Cholecystectomy Ortho: Hip replacement, Knee replacement, Spine surgery Derm: Skin grafts, Other - Present Medications Home Medications: Ambulatory Orders Medication Instructions Recorded Confirmed Albuterol Sulfate [Proair Hfa 1 - 2 puffs INH Q4H PRN 04/24/18 12/10/21 Inhaler] Calcium Carbonate/Vitamin D3 1 each PO DAILY 04/24/18 12/10/21 [Caltrate 600 Plus D3 Tablet] Cholecalciferol [Vitamin D3] 5,000 unit PO DAILY 04/24/18 12/10/21 Duloxetine HCl 120 mg PO 2100 04/24/18 12/10/21 Glucosam/Altaf-Msm1/C/Igor/Bosw 3 tab PO DAILY 04/24/18 12/10/21 [Ysstudlvfua-Xjhrghmgfwv-QJA Tb] Levothyroxine Sodium 150 mcg PO 0500 04/24/18 12/10/21 Losartan [Cozaar] 50 mg PO DAILY 04/24/18 12/10/21 Multivitamin/Iron/Folic Acid 1 each PO DAILY 04/24/18 12/10/21 [Centrum Women Tablet] Nortriptyline HCl 50 mg PO 2100 04/24/18 06/10/22 OLANZapine [Olanzapine] 15 mg PO 2100 04/24/18 12/10/21 Pantoprazole [Protonix] 40 mg PO BID 04/24/18 12/10/21 Sucralfate 1 gm PO QID 04/24/18 12/10/21 Vitamin B Complex Vit C No.4 150 mg PO DAILY 04/24/18 12/10/21 [Super B Complex] oxyCODONE [Roxicodone] 20 mg PO TID 04/24/18 12/10/21 traZODone [Desyrel] 150 mg PO HS 04/24/18 12/10/21 Montelukast [Singulair] 10 mg PO QPM #30 tablet 04/25/18 12/10/21 Amox/Clav 875/125 [Augmentin] 1 each PO Q12H #20 tablet 12/10/21 Azithromycin [Zithromax] 0 mg PO DAILY #6 tablet 12/10/21 Budesonide [Pulmicort] 1 puffs INH Q4HR PRN 12/10/21 12/10/21 Famotidine [Pepcid] 20 mg PO BID 12/10/21 12/10/21 Guaifenesin/Pseudoephedrne HCl 1 tablet PO BID PRN #30 tablet 12/10/21 [Mucinex D ER 600-60 mg Tablet] Ipratropium/Albuterol [Duoneb] 1 puffs INH BID PRN 12/10/21 12/10/21 Oxybutynin [Ditropan] 5 mg PO BID 12/10/21 12/10/21 buPROPion HCL [Bupropion HCl] 75 mg PO DAILY 12/10/21 12/10/21 predniSONE [Deltasone] 40 mg PO DAILY 5 Days #10 tablet 12/10/21 Albuterol 2.5 mg INH Q4H PRN #30 ml 09/24/22 Amoxicillin 500 mg PO TID #30 cap 09/24/22 predniSONE [Deltasone] 20 mg PO [id number] #21 tab 09/24/22 - Allergies Allergies/Adverse Reactions: Allergies Allergy/AdvReac Type Severity Reaction Status Date / Time Tetracyclines Allergy Severe Anaphylaxis Verified 09/24/22 19:28 divalproex sodium Allergy Unknown Verified 09/24/22 19:28 gabapentin Allergy Edema Verified 09/24/22 19:28 lamotrigine Allergy Edema Verified 09/24/22 19:28 buprenorphine HCl * AdvReac Severe hysterical Verified 09/24/22 19:28 [From Buprenex] fluoxetine HCl * AdvReac Severe suicidal Verified 09/24/22 19:28 [From Prozac] diazepam [From Valium] AdvReac Intermediate violent Verified 09/24/22 19:28 behavoir amitriptyline HCl * AdvReac Unknown pt is Verified 09/24/22 19:28 [From Elavil] unsure, maybe depressed clindamycin AdvReac Cramps Verified 09/24/22 19:28 Latex, Natural Rubber AdvReac Rash Verified 09/24/22 19:28 tape AdvReac Intermediate localized Uncoded 09/24/22 19:28 blisters - Social History Does the pt smoke?: No Smoking Status: Never smoker Does the pt drink ETOH?: No Does the pt have substance abuse?: No - Immunizations Immunizations are current?: Yes - POLST Patient has POLST: Yes POLST Status: DNR PD ED PE NORMAL - General General: Other (Unresponsive female, mottled, no signs of life.) - HEENT HEENT: Other (Pupils are fixed and dilated) - Neck Neck: Other (Rigid neck) - Cardiac Cardiac: Other (No signs of cardiac activity) - Respiratory Respiratory: Other (No spontaneous respiratory effort) - Abdomen Abdomen: Other (Moderate distention) - Derm Derm: Other (Dusky, mottled) - Neuro Neuro: Other (No signs of neurologic activity) Results - Vitals Vitals: Oxygen O2 Source [With Activity] Nasal cannula O2 Source [Without Activity] Nasal cannula O2 Source Nasal cannula PD Medical Decision Making - ED course Complexity details: considered differential, d/w family ED course: The patient arrived to the emergency department having arrested approximately 10 minutes prior. The patient was immediately evaluated in the car upon arrival and found to be pulseless and without any spontaneous respiratory effort or neurologic activity. CPR was initiated as best as possible in the car by nursing staff under my direction well a stretcher was obtained from the emergency department and rushed to the car. The patient was loaded onto the stretcher and transferred into the emergency department with CPR still in progress. Nursing staff was able to immediately establish an IV and epinephrine was given and IV fluids started. The patient was found to be in PEA at the first rhythm check. She was given amiodarone 300 mg an amp of bicarb, lidocaine 100 mg, and multiple rounds of epinephrine. The patient's blood glucose was well over 100. She was intubated by my colleague Dr. Duncan with good placement of the tube and good oxygenation. CPR was continued for nearly 20 minutes after the patient's arrival with absolutely no response. I did go at this point and speak with the daughter, and advised her that given the prolonged time of presumed cardiac arrest prior to arrival, and given the lack of response to extensive intervention, the odds of resuscitation of the patient to ROSC are very slim. The daughter stated that the patient did have an advanced directive stating that she did not want to be resuscitated if she was "going to be a vegetable". I discussed with her that even if we do get ROSC, it is unlikely that the patient will have a good neurologic outcome, and the daughter felt at this point that she would like to cease resuscitative efforts. As such, the time of was called at 1449 after the last pulse check when patient was still found to be in PEA. - Critical Care Time(min): 30 Comments: Critical care time was necessary, due to life-threatening condition of cardiac and respiratory arrest. Time Includes: Direct patient care, Review records, Reassess patient, Document c are, Coordinate care, Family consult for tx dec, See progress note Data interpretation: Pulse ox, Cardiac output, See progress note Procedures included in critical care time: See progress note Departure - Departure Disposition: 20 Clinical Impression: Cardiac arrest Condition: Critical
[2022-09-26] MEDS ORDERED: EPINEPHrine ABBOJECT 1 MG/10 ML SYRINGE IVP ONE (16:04)
[2022-09-26] MEDS ORDERED: LIDOCAINE 2% ABBOJECT 100 MG/5 ML SYRINGE IVP ONE (16:05)
== END 2022-09-26 16:15 | disposition expired ==
LOC: ED 14:32
DX: I46.9 Cardiac arrest, cause unspecified (principal); J44.9 Chronic obstructive pulmonary disease, unspecified; Z99.81 Dependence on supplemental oxygen; I10 Essential (primary) hypertension
CPT/HCPCS: 31500; 92950; 99291